=== PATIENT | male | born 1945 | race Caucasian/White ===

== ENCOUNTER 2019-12-01 07:54 | Inpatient (IN) ==
--- NOTE | 2019-12-01 09:12 | DR.AMS ---
HPI - Time Seen Time seen: 09:01 - PCP Primary Care Physician: Ed - Complaint Cheif Complaint Doctors Comments: states that he is COVID positive and has been disorientated with temp 101 with a cough and problems breathing. States he had chills, fever seven days ago and has been taking his medicine for diabetes and took his last pill for the COVID today. He is a patient of Dr. Harris and has been taking metformin and effient. He had angioplasty in [place] at [facility] recently. His appetite has been good and denies problems with taste or smell according to his . He denies headache or dizziness. denies tobacco, alcohol or drug usage. States he was doing fine until last night he begin to complain of having problems breathing and became disorientated. Self Treatment fo Chief Complaint: zithromas, steriods - COVID-19 Coronavirus risk:travel/contact w/high risk person: Yes Has patient experienced Coronavirus symptoms: Yes Coronavirus symptoms experienced: Fever, Coughing, Shortness of Breath - Reviewed Nurses Notes Reviewed: Yes - Source History Provided: Patient - Mode of Arrival Mode of Arrival: Wheelchair - Timing Onset of Chief Complaint: 11/23/19 Came On: Suddenly Symptoms: Worsening Symptom Onset: Unknown - Duration Duration: Constant How lon Duration: Days - Quality Quality: Decreased Alertness, Change in Behavior, Confusion - Severity Severity: Moderate - Context Recent: Fever, Cough, Nausea History Of: Diabetes, Steroid Use - Associated Signs and Symptoms Associated Signs and Symptoms: Generalized Weakness, Confusion, Change in Memory PMH - PMH Past Medical History: Yes Past Medical History: Arthritis, Diabetes, Dyslipidemia, Hypertension, Kidney Stones Past Medical History Comment: Diagnosed with COVID tuesday the with increasing shortness of breath. Past Surgical History: Yes Surgical History: Joint Replacement, Lithotripsy - Family History History of Family Medical Conditions: Yes Family Medical History: Diabetes Mellitus, Hypertension - Social History Does any household member use tobacco: No Alcohol Use: None Do you use any recreational Drugs:: No Lives With: Spouse Lives Where: Home - infectious screening In the last 2 months have you had wt loss of >10#?: NO Have you had fever, night sweats or hemotysis?: No Have you traveled outside the country in the last 6 months?: No Isolation: Droplet ROS - Review of Systems Constitutional: No Symptoms Reported, Fever, Weakness Eyes: No Symptoms Reported ENTM: No Symptoms Reported Respiratoy: No Symptoms Reported, Non-Productive Cough, Short of Breath. negative: See HPI, Productive Cough, Moist Cough, Dry Cough, Hacking Cough, Barking Cough, Brassy Cough, Orthopnea, Stridor, Wheezing, Hemoptysis, Other Cardiovascular: No Symptoms Reported Gastrointestinal/Abdominal: No Symptoms Reported, Nausea. negative: See HPI, Abdominal Pain, Constipation, Diarrhea, Vomiting, Food Intolerance, Other Genitourinary: No Symptoms Reported Neurological: No Symptoms Reported, Weakness Musculoskeletal: No Symptoms Reported Integumentary: No Symptoms Reported. negative: See HPI, Change in Color, Change in Hair/Nails, Dryness, Lesions, Lumps, Rash, Itching, Wound, Bruises, Juandice, Other Hematologic/Lymphatic: No Symptoms Reported Endocrine: No Symptoms Reported Psychiatric: No Symptoms Reported. negative: See HPI, Anxiety, Depression, Hallucinations, Excessive crying, Suicidal, Other PE - General Limitations: No Limitations General Appearance: Alert, In Distress (moderate) - Head Head Exam: Normal Inspection, Atraumatic, Normocephalic Head Exam Physical: negative: Laceration, Abrasion, Contusion, Hematoma, Raccoon Eyes, Israel's Sign, Tenderness of Temporal Artery, CSF Rhinorrhea, CSF Otorrhea, Other - Eyes Eye exam: Normal Appearance, PERRL, EOMI. negative: Scleral Icterus, Conjunctival Injection, Nystagmus, Miosis, Mydrasis, Periorbital Swelling, Periorbital Tenderness, Other Pupils: Regular, Round: Bilateral, Reactive: Bilateral - ENT ENT Exam: Normal Exam, Normal Oropharynx, Normal External Ear Exam, Mucous Membranes Moist, TM's Normal Bilaterally External Ear Exam: Normal External Inspection TM/Canal Exam: Bilateral Normal Nose Exam: Normal Nose Exam Mouth Exam: Normal Inspection. negative: Drooling, Trismus, Lip Swelling, Tongue Elevation, Tongue Swelling, Laceration, Other Throat Exam: Normal Inspection. negative: Tonsillar Erythema, Tonsillomegaly, Tonsillar Exudate, R Peritonsillar Mass, L Peritonsillar Mass, Muffled Voice, Other - Neck Neck Exam: Normal Inspection, Full ROM, Trachea Midline. negative: Tenderness, Meningismus, Lymphadenopathy, Thyromegaly, Other - Chest Chest Inspection: Normal Inspection, Symmetric Chest Wall Rise. negative: Te nderness, Rash, Abscess, Other - Respiratory Respiratory Exam: Normal Lung Sounds Bilat Respiratory Exam: Bilateral Decreased Breath Sounds, Left Rales - Cardiovascular Cardiovascular Exam: Regular Rate, Normal Rhythm, Normal Heart Sounds - Abdominal Exam Abdominal Exam: Normal Inspection, Normal Bowel Sounds, Soft. negative: Distention, Tenderness, Guarding, Rebound, Rigidity, Dimnished Bowel Sounds, Hyperactive Bowel Sounds, Hypoactive Bowel Sounds, Organomegaly, Trauma, Incision, Ascites, Mass, Bruit, Pulsatile Mass, Hernia, Other Abdominal Tenderness: negative: RUQ, RLQ, LUQ, LLQ, Epigastrium, Suprapubic, Diffuse, Mild, Moderate, Severe, Other - Extremities Extremities Exam: Normal Inspection, Full ROM, Normal Capillary Refill. negative: Tenderness, Edema, Joint Swelling, Calf Tenderness, Other - Back Back Exam: Normal Inspection, Full ROM. negative: Tenderness, (R) CVA Tenderness, (L) CVA Tenderness, Muscle Spasm, Paraspinal Tenderness, Vertebral Tenderness, Rashes, (R) Sciatic Notch Tenderness, (L) Sciatic Notch Tendern, (R) Straight Leg Raise, (L) Straight Leg Raise, Other - Neurological Neurological Exam: Alert, Oriented X3, CN II-XII Intact, Reflexes Normal. negative: Normal Gait (gait not tested) Patient Oriented To: Person, Place Speech: Fluid Speech Cranial Nerve Exam: EOM Function (II, III, IV, ): Normal, Facial Sensation (V): Normal, Facial Palsy (VII): Normal, Spinal Accessory Function (XI): Normal, Tongue Deviation: Normal Cerebellar Function: negative: Normal Gait (gait not tested) Motor Strength - LUE: 5/5 Motor Strength - RUE: 5/5 Motor Strength - LLE: 5/5 Motor Strength - RLE: 5/5 Upper Motor Neuron Exam: Babinski Sign: Normal DTR: bicep (L): 2+, bicep (R): 2+, Patellar (L): 2+, patellar (R): 2+ - Psychological Psychiatric Exam: Normal Affect, Normal Mood. negative: Depressed, Agitated, Anxious, Flat Affect, Manic, Homicidal Ideation, Suicidal Ideation, Other Expanded Psychiatric Exam: Poor Eye Contact. negative: Pressured Speech, Echolalia, Psychomotor Agitation, Delusional, Paranoid, Catatonic, Mute, Perseverating, Euphoric, Restlessness, Flight of Ideas, Loose Associations, Uncooperative, Refuses to Answer, Auditory Hallucinations, Visual Hallucinations, Confabulating, Other - Skin Skin Exam: Warm, Dry, Intact, Normal Color. negative: Rash, Cyanosis, Diaphoresis, Erythema, Pallor, Mottled, Other - Vitals Vital Signs: Temp Pulse Pulse Resp BP BP Pulse Ox 12/01/19 11:15 80 22 91 L 12/01/19 11:00 78 23 94 L 12/01/19 10:45 83 26 H 94 L 12/01/19 10:30 86 30 H 94 L 12/01/19 10:15 87 23 93 L 12/01/19 10:00 86 24 95 12/01/19 09:47 18 12/01/19 09:45 91 H 27 H 12/01/19 09:30 90 26 H 127/61 96 12/01/19 09:15 95 H 29 H 95 12/01/19 09:00 93 H 25 H 116/64 93 L 12/01/19 08:50 96 H 19 111/62 96 12/01/19 08:45 94 H 25 H 93 L 12/01/19 08:03 109 H 20 122/63 90 L 12/01/19 07:56 101.2 F H 107 H 24 122/63 89 L Course - Reevaluation 1st: Improved - Consultation Called: 10:58 Call Returned: 10:58 (Dr. Harris called to admit and place on his COVID protocol) - Education/Counseling Education/Counseling: Patient, Family Educated On: Treatment, Diagnosis, Needs for Follow Up ROR - Labs Reviewed Laboratory Results Reviewed?: Yes (All labs and x-ray results reviewed and discussed with patient) Result Diagrams: 12/01/19 09:38 12/01/19 09:38 - XRAY XRAY Interpreted by: Radiologist (CXR: No convincing evidence for pneumonia.) - EKG Rate: 88 Raymond: Normal Rhythm: NSR Block: None Hypertrophy: None ST: Nonsp - Labs Reviewed Laboratory: WBC 8.9 X10^3/uL (3.6-10.0) 12/01/19 09:38 RBC 4.45 X10^6/uL (4.7-6.0) L 12/01/19 09:38 Hgb 14.0 g/dL (13.5-18.0) 12/01/19 09:38 Hct 41.4 % (42.0-54.0) L 12/01/19 09:38 MCV 93.0 fL (80.0-100.0) 12/01/19 09:38 MCH 31.5 pg (27.0-34.0) 12/01/19 09:38 MCHC 33.8 g/dL (33.0-35.0) 12/01/19 09:38 RDW 14.0 % (11.6-16.5) 12/01/19 09:38 Plt Count 188 X10^3/uL (150.0-450.0) 12/01/19 09:38 Plt Count Comment Adequate (ADEQUATE) 12/01/19 09:38 MPV 8.3 fL (7.4-11.0) 12/01/19 09:38 Neut % (Auto) 82.4 % (42.0-75.0) H 12/01/19 09:38 Lymph % (Auto) 10.0 % (21.0-51.0) L 12/01/19 09:38 [place] % (Auto) 7.4 % (0.0-13.0) 12/01/19 09:38 Eos % (Auto) 0.0 % (0.9-2.9) L 12/01/19 09:38 Baso % (Auto) 0.2 % (0.2-1.0) 12/01/19 09:38 Neut # (Auto) 7.3 x10^3/uL (2.2-4.8) H 12/01/19 09:38 Lymph # (Auto) 0.9 X10^3/uL (1.3-2.9) L 12/01/19 09:38 Dup[place] # (Auto) 0.7 x10^3/uL (0.3-0.8) 12/01/19 09:38 Eos # (Auto) 0.0 x10^3/uL (0.0-0.2) 12/01/19 09:38 Baso # (Auto) 0.0 X10^3/uL (0.0-0.1) 08/08/20 09:38 Absolute Nucleated RBC 0.0 /100WBC 12/01/19 09:38 Total Counted 100 12/01/19 09:38 Neutrophils % (Manual) 80 % (39-76) H 12/01/19 09:38 Band Neutrophils % 1 % (0-10) 12/01/19 09:38 Lymphocytes % (Manual) 12 % (13-43) L 12/01/19 09:38 Monocytes % (Manual) 7 % (4-9) 12/01/19 09:38 Plt Morphology Comment Normal (NORMAL) 12/01/19 09:38 RBC Morphology Normal (NORMAL) 12/01/19 09:38 PT 13.5 SECONDS (11.8-14.3) 12/01/19 09:38 INR Target Range - 12/01/19 09:38 INR 1.06 (0.8-1.3) 12/01/19 09:38 APTT 29.1 SECONDS (22.9-36.5) 12/01/19 09:38 PTT Comment - 12/01/19 09:38 D-Dimer 588 ng/mL (0-400) H* 12/01/19 09:38 Sodium 135 mmol/L (136-145) L 12/01/19 09:38 Corrected Sodium 138 mmol/L (136-145) 12/01/19 09:38 Potassium 4.0 mmol/L (3.5-5.1) 12/01/19 09:38 Chloride 97 mmol/L (98-107) L 12/01/19 09:38 Carbon Dioxide 27.8 mmol/L (21-32) 12/01/19 09:38 BUN 21 mg/dL (7-18) H 12/01/19 09:38 Creatinine 1.39 mg/dL (0.70-1.30) H 12/01/19 09:38 Est GFR (MDRD) Af Amer > 60 (>60) 12/01/19 09:38 Est GFR (MDRD) Non-Af 53 (>60) L 12/01/19 09:38 Glucose 209 mg/dL (65-99) H 12/01/19 09:38 Calcium 9.0 mg/dL (8.5-10.1) 12/01/19 09:38 Corrected Calcium TNP 12/01/19 09:38 Magnesium 1.4 mg/dL (1.7-2.9) L 12/01/19 09:38 Ferritin 338 ng/mL (26-388) 12/01/19 09:38 Total Bilirubin 0.50 mg/dL (0.2-1.0) 12/01/19 09:38 AST 30 Units/L (15-37) 12/01/19 09:38 ALT 50 Units/L (12-78) 12/01/19 09:38 Alkaline Phosphatase 86 Units/L (46-116) 12/01/19 09:38 Creatine Kinase 32 Units/L (39-308) L 12/01/19 09:38 CK-MB (CK-2) < 1.0 ng/mL (0-4.0) 12/01/19 09:38 CK/CKMB % Calc 3.1 % (<4) 12/01/19 09:38 Troponin I 0.02 ng/mL (0-1.5) 12/01/19 09:38 C-Reactive Protein 38.50 mg/L (0-3.0) H 12/01/19 09:38 Total Protein 7.6 g/dL (6.4-8.2) 12/01/19 09:38 Albumin 3.4 g/dL (3.4-5.0) 12/01/19 09:38 Globulin 4.2 g/dL (2.5-4.5) 12/01/19 09:38 Albumin/Globulin Ratio 0.8 Ratio (1.1-2.1) L 12/01/19 09:38 Opioid - Opioid Risk Tool Age (Scar box if 16-45): No History of Preadolescent Sexual Abuse: No Total: 0 Total Score Risk Category: Low Risk - Diagnosis Discharge Problem: COVID-19 virus infection, Acute respiratory disease due to COVID-19 virus, AMS (altered mental status) - Discharge Plan Disposition: ADMITTED INPATIENT Condition: Stable - Follow ups/Referrals Follow ups/Referrals: JAIR BAILEY [Primary Care Provider] - 3 days - Instructions
[2019-12-01] MEDS ORDERED: ROCEPHIN VIAL 1 GRAM 1 G in NS 100 ML IV + SPIKE MINIBAG* 100 ML IV ONE (09:23)
[2019-12-01] MEDS ORDERED: TYLENOL 500 MG TAB EXTRA STRENGTH PO STA (09:25)
[2019-12-01] MEDS ORDERED: NS 1000 ML 1,000 ML ONE (09:29)
[2019-12-01] MEDS ORDERED: NS 100 ML IV + SPIKE MINIBAG* 100 ML IV ONE (09:29)
[2019-12-01] MEDS ORDERED: ROCEPHIN VIAL 1 GRAM ONE (09:29)
[2019-12-01] MEDS ORDERED: TYLENOL 500 MG TAB EXTRA STRENGTH PO ONE (09:47)
--- NOTE | 2019-12-01 09:57 | RAD ---
HISTORYPneumonia SOBSTUDYAP chestCOMPARISONNoneFINDINGSUpper normal heart size. There is no evidence for segmental or lobar consolidation or pleural effusion. Minimal basal infiltrate may be present, this is equivocal. No definite pneumonia identified.IMPRESSIONNo convincing evidence for pneumonia. See above. Follow-up suggested if symptoms persist.Electronically signed by: CELIA WADE (Dec 01, 2019 09:56:14)
[2019-12-01 10:00] LABS: BASOPHILS % (AUTO) 0.2 % (0.2-1.0); HEMATOCRIT 41.4 % (42.0-54.0); LYMPHOCYTES # (AUTO) 0.9 X10^3/uL (1.3-2.9); MEAN CORPUSCULAR HEMOGLOBIN 31.5 pg (27.0-34.0); MEAN CORPUSCULAR HGB CONC 33.8 g/dL (33.0-35.0); MEAN PLATELET VOLUME 8.3 fL (7.4-11.0); MONOCYTES # (AUTO) 0.7 x10^3/uL (0.3-0.8); MONOCYTES % (AUTO) 7.4 % (0.0-13.0); NEUTROPHILS # (AUTO) 7.3 x10^3/uL (2.2-4.8); NEUTROPHILS % (AUTO) 82.4 % (42.0-75.0); PLATELET COUNT 188 X10^3/uL (150.0-450.0); RED BLOOD COUNT 4.45 X10^6/uL (4.7-6.0); WHITE BLOOD COUNT 8.9 X10^3/uL (3.6-10.0)
[2019-12-01] MEDS ORDERED: NS 1000 ML 1,000 ML IV SCH (10:00)
[2019-12-01 10:14] LABS: BLOOD UREA NITROGEN 21 mg/dL (7-18); CARBON DIOXIDE 27.8 mmol/L (21-32); CHLORIDE 97 mmol/L (98-107); COR NA(FOR HYPERGLY) 138 mmol/L (136-145); CREATININE 1.39 mg/dL (0.70-1.30); SODIUM 135 mmol/L (136-145); TROPONIN I 0.02 ng/mL (0-1.5); eGFR NON BLACK RACES 53 (>60)
[2019-12-01 10:18] LABS: ALANINE AMINOTRANSFERASE 50 Units/L (12-78); ALBUMIN 3.4 g/dL (3.4-5.0); ALKALINE PHOSPHATASE 86 Units/L (46-116); ASPARTATE AMINO TRANSFERASE 30 Units/L (15-37); CKMB % 3.1 % (<4); CREATINE KINASE 32 Units/L (39-308); CREATINE KINASE MB < 1.0 ng/mL (0-4.0); MAGNESIUM 1.4 mg/dL (1.7-2.9); TOTAL PROTEIN 7.6 g/dL (6.4-8.2)
[2019-12-01 10:30] LABS: BAND NEUTROPHILS % 1 % (0-10); PLATELET MORPHOLOGY COMMENT NORMAL (NORMAL)
[2019-12-01] MEDS ORDERED: REMDESIVIR (INVESTIGATIONAL DRUG GS-5734) 200 MG in NS 250 ML IV 250 ML IV SCH (12:00)
[2019-12-01] MEDS: CORTEF PO SCH ×2 (16:22→16:53)
[2019-12-01] MEDS: NS 1000 ML 1,000 ML IV SCH (16:41)
[2019-12-01] MEDS ORDERED: CORTEF ONE (16:48)
[2019-12-01] MEDS ORDERED: REMDESIVIR (INVESTIGATIONAL DRUG GS-5734) IV ONE (16:48)
[2019-12-01] MEDS ORDERED: NS 250 ML IV 250 ML IV ONE (16:49)
[2019-12-01] MEDS ORDERED: NS 100 ML IV 100 ML IV ONE (16:49)
[2019-12-01] MEDS ORDERED: ASCORBIC ACID INJ MULTI-DOSE VIAL IV ONE (16:50)
[2019-12-01] MEDS ORDERED: PROVENTIL NEB TX 0.083% 2.5MG/ 3ML ONE (17:00)
[2019-12-01] MEDS: PROVENTIL NEB TX 0.083% 2.5MG/ 3ML NEB PRN (17:05)
[2019-12-01 17:40] VITALS: BMI 27.6
[2019-12-01] MEDS: ASCORBIC ACID INJ MULTI-DOSE VIAL 1,500 MG in NS 100 ML IV 100 ML IV SCH ×2 (18:05→20:22)
[2019-12-01] MEDS ORDERED: MAGNESIUM SULFATE 1 GRAM/100 mL PREMIX 1 GM/100 ML BAG IV PRN (19:49)
[2019-12-01] MEDS: PROVENTIL NEB TX 0.083% 2.5MG/ 3ML NEB SCH (20:00)
[2019-12-01] MEDS: MUCOMYST 20% 200 MG/ML NEB SCH (20:00)
[2019-12-01] MEDS: PULMICORT NEB TX 0.5 MG NEB SCH (20:00)
[2019-12-01] MEDS ORDERED: THIAMINE HCL INJ IM SCH (21:00)
[2019-12-01] MEDS ORDERED: PLAQUENIL PO SCH (21:00)
[2019-12-01] MEDS: ZINC SULFATE PO SCH (21:58)
[2019-12-01] MEDS: PEPCID 20 MG IV PREMIX* 20 MG/50 ML BAG IV SCH (21:58)
[2019-12-01] MEDS: SOLU-Medrol 40 MG VIAL IVP SCH (21:58)
[2019-12-01] MEDS: LOVENOX INJ 30 MG SYR SC SCH (21:58)
[2019-12-01] MEDS: TYLENOL 325 MG TAB PO PRN (21:59)
[2019-12-02] MEDS: ASCORBIC ACID INJ MULTI-DOSE VIAL 1,500 MG in NS 100 ML IV 100 ML IV SCH ×2 (02:13→09:24)
[2019-12-02 05:22] LABS: ABG ALLEN TEST POS; ABG HCO3 26.6 mmol/L (22-26); FRACTIONATED INSPIRED OXYGEN 21
[2019-12-02 05:53] LABS: ALANINE AMINOTRANSFERASE 42 Units/L (12-78); ALBUMIN 3.2 g/dL (3.4-5.0); ALKALINE PHOSPHATASE 78 Units/L (46-116); ASPARTATE AMINO TRANSFERASE 27 Units/L (15-37); BLOOD UREA NITROGEN 17 mg/dL (7-18); CALCIUM 8.6 mg/dL (8.5-10.1); CARBON DIOXIDE 25.1 mmol/L (21-32); CHLORIDE 98 mmol/L (98-107); COR CA(FOR HYPOALB) 9.2 mg/dL (8.5-10.1); COR NA(FOR HYPERGLY) 140 mmol/L (136-145); CREATININE 1.07 mg/dL (0.70-1.30); SODIUM 135 mmol/L (136-145); TOTAL PROTEIN 7.7 g/dL (6.4-8.2); eGFR NON BLACK RACES > 60 (>60)
--- NOTE | 2019-12-02 06:10 | RAD ---
HISTORYSOBSTUDYCHEST, 1 [id number]/08/2020FINDINGSThe trachea is midline. The cardiac silhouette is enlarged with a tortuous thoracic aorta. Chronic interstitial lung changes are observed without focal infiltrate or effusion.. The bony thorax is unremarkable.IMPRESSIONChronic interstitial lung changes without focal infiltrate or other airspace disease.Electronically signed by: ELVIN RODRÍGUEZ (Dec 02, 2019 06:09:43)
[2019-12-02 06:20] LABS: BASOPHILS % (AUTO) 0.2 % (0.2-1.0); HEMOGLOBIN 14.4 g/dL (13.5-18.0); LYMPHOCYTES # (AUTO) 0.7 X10^3/uL (1.3-2.9); LYMPHOCYTES % (AUTO) 9.3 % (21.0-51.0); MEAN CORPUSCULAR HEMOGLOBIN 31.6 pg (27.0-34.0); MEAN CORPUSCULAR HGB CONC 33.5 g/dL (33.0-35.0); MEAN CORPUSCULAR VOLUME 94.2 fL (80.0-100.0); MEAN PLATELET VOLUME 8.5 fL (7.4-11.0); MONOCYTES # (AUTO) 0.2 x10^3/uL (0.3-0.8); MONOCYTES % (AUTO) 2.6 % (0.0-13.0); NEUTROPHILS # (AUTO) 6.8 x10^3/uL (2.2-4.8); NEUTROPHILS % (AUTO) 87.9 % (42.0-75.0); PLATELET COUNT 192 X10^3/uL (150.0-450.0); RED BLOOD COUNT 4.56 X10^6/uL (4.7-6.0); RED CELL DISTRIBUTION WIDTH 14.1 % (11.6-16.5); WHITE BLOOD COUNT 7.7 X10^3/uL (3.6-10.0)
[2019-12-02 07:47] LABS: BAND NEUTROPHILS % 4 % (0-10); PLATELET MORPHOLOGY COMMENT NORMAL (NORMAL)
[2019-12-02 07:48] LABS: METAMYELOCYTES % 1
[2019-12-02] MEDS: PULMICORT NEB TX 0.5 MG NEB SCH ×2 (08:50→20:55)
[2019-12-02] MEDS: MUCOMYST 20% 200 MG/ML NEB SCH ×2 (08:50→20:55)
[2019-12-02] MEDS: PROVENTIL NEB TX 0.083% 2.5MG/ 3ML NEB SCH ×2 (08:50→20:55)
[2019-12-02] MEDS ORDERED: VITAMIN A PO SCH (09:00)
[2019-12-02] MEDS ORDERED: VITAMIN D (1.25MG) PO SCH (09:00)
[2019-12-02] MEDS: LOVENOX INJ 30 MG SYR SC SCH ×2 (09:23→21:04)
[2019-12-02] MEDS: SOLU-Medrol 40 MG VIAL IVP SCH ×2 (09:24→22:06)
[2019-12-02] MEDS: ZINC SULFATE PO SCH ×2 (09:24→23:06)
[2019-12-02] MEDS: PEPCID 20 MG IV PREMIX* 20 MG/50 ML BAG IV SCH ×2 (10:08→23:06)
[2019-12-02] MEDS ORDERED: REMDESIVIR (INVESTIGATIONAL DRUG GS-5734) 100 MG in NS 250 ML IV 250 ML IV SCH (10:50)
[2019-12-02] MEDS ORDERED: LEVAQUIN PREMIX IV 500 MG 500 MG/100 ML BAG IV SCH (11:00)
[2019-12-02] MEDS ORDERED: LEVAQUIN PREMIX IV 500 MG 500 MG/100 ML BAG IV ONE (11:01)
[2019-12-02] MEDS: NS 1000 ML 1,000 ML IV SCH (12:04)
[2019-12-02] MEDS ORDERED: COREG TAB 6.25 MG ONE (14:20)
[2019-12-02] MEDS: COREG TAB 6.25 MG PO SCH ×2 (14:24→23:03)
[2019-12-02] MEDS ORDERED: GLUCOPHAGE ONE (16:36)
[2019-12-02] MEDS ORDERED: PLETAL PO PRN (16:39)
[2019-12-02] MEDS: PROVENTIL NEB TX 0.083% 2.5MG/ 3ML NEB PRN (16:50)
[2019-12-02] MEDS: GLUCOPHAGE PO SCH (16:50)
--- NOTE | 2019-12-02 18:26 | DR.H&P ---
H&P - History & Physical for Day of: H&P Date: 12/01/19 - Chief Complaint Chief Complaint: COUGH, SOB, FEVER, AMS, WEAKNESS - History of Present Illness History of Present Illness: IS A 74 YEAR OLD PATIENT OF OURS. HE PRESENTED TO THE HOSPITAL WITH REPORTS OF COUGH, SHORTNESS OF BREATH, FEVER, DISORIENTATION, AND WEAKNESS. HE TESTED POSITIVE FOR COVID-19 ABOUT 3 DAYS AGO. HE HAD A RECENT ANGIOPLASTY IN [place] AT [facility]. HE DENIES HEADACHE, DIZZINESS, OR APPETITE CHANGES. HE HAS BEEN TAKING A MEDROL DOSEPACK AND AZITHROMYCIN 500MG DAILY WITHOUT IMPROVEMENT IN SYMPTOMS. HIS PMH INCLUDES: ARTHRITIS, DIABETES, DYSLIPIDEMIA, HTN, KIDNEY STONES, JOINT REPLACEMENT, LITHOTRIPSY, AND ANGIOPLASTY. ON ARRIVAL TO THE ER, VITALS WERE 101.2-107-24-89%RA-122/63. LABS WERE OBTAINED. ABNORMAL LAB VALUES INCLUDE THE FOLLOWING: RBC 4.45, HCT 41.4, D-DIMER 588, SODIUM 135, CHLORIDE 97, BUN 21, CREATININE 1.39, GLUCOSE 209, MAGNESIUM 1.4, CREATINE KINASE 32, CRP 38.50. BLOOD AND SPUTUM CULTURES WERE SET UP. A CHEST XRAY WAS OBTAINED AND REVEALED: Upper normal heart size. There is no evidence for segmental or lobar consolidation or pleural effusion. Minimal basal infiltrate may be present, this is equivocal. No definite pneumonia identified. EKG REVEALED: SINUS RHYTHM WITH HR 88. HE WAS GIVEN ROCEPHIN 1G IV X 1 DOSE, TYLENOL 1G PO X 1 DOSE IN THE ER. HE WAS ADMITTED FOR FURTHER EVALUATION AND TREATMENT OF COVID-19, ACUTE BRON CHITIS, RESPIRATORY DISTRESS, AMS, AND HYPOMAGNESEMIA. HE WAS STARTED ON NS AT 75 ML/HR, REMDESIVIR 200MG IV X 1 DOSE, THEN 100MG IV DAILY, LEVAQUIN 500MG IV DAILY, SOLU-MEDROL 80MG IV Q8H, PEPCID 20MG IV Q12H, ALBUTEROL NEB [place] BID AND Q4H PRN, PULMICORT NEBS BID, MUCOMYST 200MG BID IN NEB [place], LOVENOX 30MG SC BID, THE MAGNESIUM PROTOCOL, ZINC 220MG PO BID, AND HOME MEDICATIONS WERE RESUMED. OTHERWISE, WE PLAN TO FOLLOW UP WITH AM LABS, CHEST XRAY, ABG, AND CONTINUE TO MONITOR. - Past Medical History Past Medical History: Arthritis, Diabetes, Dyslipidemia, Hypertension, Kidney Stones - Past Surgical History Surgical History: Ortho Surgery Additional Surgical History: ANGIOPLASTY, LITHOTRIPSY - Family History Family Medical History: Diabetes Mellitus, Hypertension - Social History Does any household member use tobacco: No Alcohol Use: None Drug Use: None - Medications Home Medications: No Known Drug Allergies Allergy (Verified 12/01/19 09:26) CONTINUE taking the following medications aspirin [Aspir-81] 81 mg PO DAILY 12/02/19 [History] atorvastatin 40 mg PO QHS 12/02/19 [History] carvedilol 6.25 mg PO BID 12/02/19 [History] cilostazol 100 mg PO BID PRN 12/02/19 [History] doxazosin 8 mg PO QHS 12/02/19 [History] gabapentin 600 mg PO BID 12/02/19 [History] metformin 500 mg PO BID 12/02/19 [History] prasugrel 10 mg PO DAILY 12/02/19 [History] - Review of Systems Constitutional: See HPI, Fever, Chills, Weakness Eyes: No Symptoms Reported ENT: No Symptoms Reported Respiratory: See HPI, Cough, Shortness of Breath, SOB with Excertion, Wheezing Cardiovascular: No Symptoms Reported Gastrointestinal: No Symptoms Reported Genitourinary: No Symptoms Reported Musculoskeletal: No Symptoms Reported Skin: No Symptoms Reported Neurological: Weakness - Physical Exam Vital Signs: Temperature 97.8 F Pulse Rate [Right Brachial] 80 Pulse Rate [Left Radial] 96 Pulse Rate 88 Respiratory Rate 18 Blood Pressure [Right Arm] 175/91 Blood Pressure [Left Arm] 111/62 Blood Pressure 127/61 O2 Sat by Pulse Oximetry 96 Oriented: Person Eyes: Normal Ear: Normal Nose: Normal Throat: Normal Respiratory: Diminished Throughout Cardiovascular: Normal : Normal Auscultation: Bowel Sounds: Normal Palpation: Normal Tenderness: Normal Skin: Normal Musculoskeletal: Normal Psychiatric: Normal Mood Description: Calm Affect: Normal Speech Pattern: Inappropriate - Assessment/Plan (1) COVID-19 virus infection Status: Acute Plan: ADMIT, NS AT 75 ML/HR, REMDESIVIR 200MG IV X 1 DOSE, THEN 100MG IV DAILY, LEVAQUIN 500MG IV DAILY, SOLU-MEDROL 80MG IV Q8H, PEPCID 20MG IV Q12H, ALBUTEROL NEB [place] BID AND Q4H PRN, PULMICORT NEBS BID, MUCOMYST 200MG BID IN NEB [place], LOVENOX 30MG SC BID, THE MAGNESIUM PROTOCOL, ZINC 220MG PO BID, AND HOME MEDICATIONS WERE RESUMED. (2) Acute respiratory disease due to COVID-19 virus Status: Acute (3) AMS (altered mental status) Qualifiers: Altered mental status type: transient alteration of awareness Qualified Code(s): R40.4 - Transient alteration of awareness Status: Acute - Allergies Allergies/Adverse Reactions: Allergies Allergy/AdvReac Type Severity Reaction Status Date / Time No Known Drug Allergies Allergy Verified 12/01/19 09:26
[2019-12-02 19:05] LABS: CRYPTOSPORIDIUM PARVUM ANTIGEN NEGATIVE (NEGATIVE); GIARDIA LAMBLIA ANTIGEN NEGATIVE (NEGATIVE)
[2019-12-02] MEDS ORDERED: SOLU-Medrol 40 MG VIAL ONE (19:58)
[2019-12-02] MEDS: CARDURA PO SCH (21:02)
[2019-12-02] MEDS: CIPRO IV 400 MG PREMIX* 400 MG/200 ML IV.SOLN. IV SCH (21:02)
[2019-12-02] MEDS: NEURONTIN TAB 600 MG PO SCH (21:05)
[2019-12-02] MEDS: TYLENOL 325 MG TAB PO PRN ×2 (22:00→23:09)
[2019-12-02] MEDS: LIPITOR TAB 40 MG PO SCH (23:03)
[2019-12-03] MEDS ORDERED: GLUCOPHAGE ONE ×2 (05:04→16:06)
[2019-12-03] MEDS: SOLU-Medrol 40 MG VIAL IVP SCH ×3 (05:40→22:01)
[2019-12-03 06:04] LABS: ALANINE AMINOTRANSFERASE 34 Units/L (12-78); ALBUMIN 2.9 g/dL (3.4-5.0); ALKALINE PHOSPHATASE 79 Units/L (46-116); ASPARTATE AMINO TRANSFERASE 21 Units/L (15-37); BLOOD UREA NITROGEN 25 mg/dL (7-18); CALCIUM 8.5 mg/dL (8.5-10.1); CARBON DIOXIDE 22.7 mmol/L (21-32); CHLORIDE 102 mmol/L (98-107); COR CA(FOR HYPOALB) 9.4 mg/dL (8.5-10.1); COR NA(FOR HYPERGLY) 141 mmol/L (136-145); CREATININE 1.19 mg/dL (0.70-1.30); SODIUM 136 mmol/L (136-145); TOTAL PROTEIN 7.1 g/dL (6.4-8.2); eGFR NON BLACK RACES > 60 (>60)
[2019-12-03 06:16] LABS: BASOPHILS % (AUTO) 0 % (0.2-1.0); HEMATOCRIT 41.4 % (42.0-54.0); LYMPHOCYTES # (AUTO) 0.8 X10^3/uL (1.3-2.9); LYMPHOCYTES % (AUTO) 7.1 % (21.0-51.0); MEAN CORPUSCULAR HEMOGLOBIN 31.4 pg (27.0-34.0); MEAN CORPUSCULAR HGB CONC 33.8 g/dL (33.0-35.0); MEAN CORPUSCULAR VOLUME 92.8 fL (80.0-100.0); MONOCYTES # (AUTO) 0.3 x10^3/uL (0.3-0.8); MONOCYTES % (AUTO) 2.8 % (0.0-13.0); NEUTROPHILS # (AUTO) 10.1 x10^3/uL (2.2-4.8); NEUTROPHILS % (AUTO) 90.1 % (42.0-75.0); PLATELET COUNT 208 X10^3/uL (150.0-450.0); RED BLOOD COUNT 4.46 X10^6/uL (4.7-6.0); RED CELL DISTRIBUTION WIDTH 13.8 % (11.6-16.5); WHITE BLOOD COUNT 11.2 X10^3/uL (3.6-10.0)
[2019-12-03] MEDS: GLUCOPHAGE PO SCH ×2 (06:33→16:19)
--- NOTE | 2019-12-03 07:02 | RAD ---
HISTORYShort of breath follow-up for history of COVID infection, acute respiratory distressSTUDYCHEST, 1 VIEWCOMPARISONAP portable chest December 02, 2019.FINDINGSThe trachea is midline. The cardiac silhouette is unremarkable . The lungs are clear without focal infiltrate or effusion. The bony thorax is unremarkable. There is no interval change from yesterday's film.IMPRESSIONNo acute cardiopulmonary disease and no change from recent film 02 December 2019..Electronically signed by: DIOR SHEIKH (Dec 03, 2019 07:01:47)
[2019-12-03 07:03] LABS: ABG BASE EXCESS -1.1 mmol/L (-2.0-2.0); ABG HCO3 22.2 mmol/L (22-26)
[2019-12-03 07:04] LABS: ABG ALLEN TEST POS; FRACTIONATED INSPIRED OXYGEN 21
[2019-12-03 07:16] LABS: PLATELET MORPHOLOGY COMMENT NORMAL (NORMAL)
[2019-12-03] MEDS: PEPCID 20 MG IV PREMIX* 20 MG/50 ML BAG IV SCH ×2 (08:32→22:02)
[2019-12-03] MEDS: PULMICORT NEB TX 0.5 MG NEB SCH ×2 (08:40→21:30)
[2019-12-03] MEDS: MUCOMYST 20% 200 MG/ML NEB SCH ×2 (08:40→21:30)
[2019-12-03] MEDS: PROVENTIL NEB TX 0.083% 2.5MG/ 3ML NEB SCH ×2 (08:40→21:30)
[2019-12-03] MEDS: CIPRO IV 400 MG PREMIX* 400 MG/200 ML IV.SOLN. IV SCH ×2 (08:51→22:00)
[2019-12-03] MEDS: COREG TAB 6.25 MG PO SCH ×2 (08:52→22:00)
[2019-12-03] MEDS: LOVENOX INJ 30 MG SYR SC SCH ×2 (08:53→22:00)
[2019-12-03] MEDS: ZINC SULFATE PO SCH ×2 (08:53→22:01)
[2019-12-03] MEDS: NEURONTIN TAB 600 MG PO SCH ×2 (08:53→22:01)
[2019-12-03] MEDS ORDERED: VITAMIN D3 125 mcg (5,000 UNITS) PO SCH (09:00)
[2019-12-03] MEDS ORDERED: VITAMIN A PO SCH (09:00)
[2019-12-03] MEDS: NS 1000 ML 1,000 ML IV SCH (12:31)
[2019-12-03] MEDS: HumuLIN R SUBCUT PRN ×3 (12:46→22:00)
[2019-12-03] MEDS ORDERED: HumuLIN R ONE (12:46)
--- NOTE | 2019-12-03 13:18 | PCM.PROG ---
Progress Note - Progress Note for Day of Date of Exam: 12/02/19 - Subjective Subjective: IS BEING TREATED FOR COVID-19, ACUTE BRONCHITIS, RESPIRATORY DISTRESS, AMS, AND HYPOMAGNESEMIA. TODAY, HE IS ALERT AND ORIENTED, LYING IN BED ON MORNING ROUNDS. HE CONTINUES WITH COMPLAINTS OF COUGH AND SHORTNESS OF BREATH. HE ALSO REPORTS SEVERAL EPISODES OF DIARRHEA TODAY. STAFF REPORTS THAT HE IS DISORIENTED AT TIMES. HE HAS BEEN UTILIZING OXYGEN VIA NASAL CANNULA AT 2L/MIN. ON EXAMINATION, HEART IS REGULAR IN RATE AND RHYTHM. BILATERAL LUNGS ARE NOTED WITH DIMINISHED LUNG SOUNDS THROUGHOUT. ABDOMEN IS ROUND, SOFT, AND NON-TENDER WITH HYPERACTIVE BOWEL SOUNDS. HIS VITALS THIS MORNING ARE: 98.6-88-20-97%NC-146/75. LABS WERE OBTAINED. ABNORMAL LAB VALUES INCLUDE THE FOLLOWING: RBC 4.56, SODIUM 135, GLUCOSE 288, CRP 110.20, ALBUMIN 3.2. ABG REVEALED: PH 7.420, PC02 41.0, P02 65.0, HC03 26.6, 02 SATURATION 93.0, BASE EXCESS 33.0, FI02 21.0. BLOOD CULTURES ARE PENDING. A CHEST XRAY WAS OBTAINED AND REVEALED: Chronic interstitial lung changes without focal infiltrate or other airspace disease. HE IS CURRENTLY RECEIVING NS AT 75 ML/HR, REMDESIVIR 100MG IV DAILY, LEVAQUIN 500MG IV DAILY, SOLU-MEDROL 80MG IV Q8H, PEPCID 20MG IV Q12H, ALBUTEROL NEB TX BID AND Q4H PRN, PULMICORT NEBS BID, MUCOMYST 200MG BID IN NEB TX, LOVENOX 30MG SC BID, THE MAGNESIUM PROTOCOL, ZINC 220MG PO BID, AND HOME MEDICATIONS WERE RESUMED. TODAY, WE WILL OBTAIN STOOL STUDIES. OTHERWISE, WE WILL FOLLOW UP WITH AM LABS, CHEST XRAY, EKG, AND CONTINUE TO MONITOR. - Past Medical Family Social History Past Med/Fam/Surg Hx: No changes since H&P Allergies: Allergies No Known Drug Allergies Allergy (Verified 12/01/19 09:26) - Review of Systems ROS: No change since H&P - Vital Signs and I&O's Vital Signs: Temperature 97.7 F Pulse Rate [Right Brachial] 62 Pulse Rate [Left Radial] 96 Pulse Rate 73 Respiratory Rate 22 Blood Pressure [Right Arm] 146/70 Blood Pressure [Left Arm] 111/62 Blood Pressure 127/61 O2 Sat by Pulse Oximetry 96 Intake and Output: Intake & Output 12/01/19 12/02/19 12/03/19 12/04/19 11:59 11:59 11:59 11:59 Intake Total 2600 / 2600 4092 / 4092 Output Total 2150 / 2150 Balance 450 / 450 4092 / 4092 - Physical Exam Oriented: Person Eyes: Normal Ear: Normal Nose: Normal Throat: Normal Cardiovascular: Normal : Normal Auscultation: Bowel Sounds: Normal Palpation: Normal Tenderness: Normal Skin: Normal Musculoskeletal: Normal Psychiatric: Normal Mood Description: Calm Affect: Normal Speech Pattern: Clear, Appropriate - Laboratory and Diagnostics Result Diagrams: 12/03/19 04:40 12/03/19 04:40 Labs: 12/02/19 17:30 Sputum - Expectorated Sputum Sputum Culture - Preliminary 12/02/19 17:30 Sputum - Expectorated Sputum - Final 12/02/19 17:53 Stool Stool Culture - Preliminary 12/02/19 17:53 Stool - Final Laboratory WBC 11.2 X10^3/uL (3.6-10.0) H 12/03/19 04:40 RBC 4.46 X10^6/uL (4.7-6.0) L 12/03/19 04:40 Hgb 14.0 g/dL (13.5-18.0) 12/03/19 04:40 Hct 41.4 % (42.0-54.0) L 12/03/19 04:40 MCV 92.8 fL (80.0-100.0) 12/03/19 04:40 MCH 31.4 pg (27.0-34.0) 12/03/19 04:40 MCHC 33.8 g/dL (33.0-35.0) 12/03/19 04:40 RDW 13.8 % (11.6-16.5) 12/03/19 04:40 Plt Count 208 X10^3/uL (150.0-450.0) 12/03/19 04:40 Plt Count Comment Adequate (ADEQUATE) 12/03/19 04:40 MPV 8.0 fL (7.4-11.0) 12/03/19 04:40 Neut % (Auto) 90.1 % (42.0-75.0) H 12/03/19 04:40 Lymph % (Auto) 7.1 % (21.0-51.0) L 12/03/19 04:40 [place] % (Auto) 2.8 % (0.0-13.0) 12/03/19 04:40 Eos % (Auto) 0.0 % (0.9-2.9) L 12/03/19 04:40 Baso % (Auto) 0 % (0.2-1.0) L 12/03/19 04:40 Neut # (Auto) 10.1 x10^3/uL (2.2-4.8) H 12/03/19 04:40 Lymph # (Auto) 0.8 X10^3/uL (1.3-2.9) L 12/03/19 04:40 [place] # (Auto) 0.3 x10^3/uL (0.3-0.8) 12/03/19 04:40 Eos # (Auto) 0.0 x10^3/uL (0.0-0.2) 12/03/19 04:40 Baso # (Auto) 0.0 X10^3/uL (0.0-0.1) 12/03/19 04:40 Absolute Nucleated RBC 0.1 /100WBC 12/03/19 04:40 Total Counted 100 12/03/19 04:40 Neutrophils % (Manual) 86 % (39-76) H 12/03/19 04:40 Band Neutrophils % 4 % (0-10) 12/02/19 04:25 Lymphocytes % (Manual) 10 % (13-43) L 12/03/19 04:40 Monocytes % (Manual) 3 % (4-9) L 12/03/19 04:40 Eosinophils % (Manual) 1 % (0-6) 12/03/19 04:40 Metamyelocytes % 1 12/02/19 04:25 Plt Morphology Comment Normal (NORMAL) 12/03/19 04:40 RBC Morphology Normal (NORMAL) 12/03/19 04:40 PT 13.5 SECONDS (11.8-14.3) 12/01/19 09:38 INR Target Range - 12/01/19 09:38 INR 1.06 (0.8-1.3) 12/01/19 09:38 APTT 29.1 SECONDS (22.9-36.5) 12/01/19 09:38 PTT Comment - 12/01/19 09:38 D-Dimer 588 ng/mL (0-400) H* 12/01/19 09:38 Sample Site Rrad 12/03/19 05:35 ABG pH 7.450 (7.35-7.45) 12/03/19 05:35 ABG pCO2 32.0 mmHg (35.0-45.0) L 12/03/19 05:35 ABG pO2 74.0 mmHg (80.0-100.0) L 12/03/19 05:35 ABG HCO3 22.2 mmol/L (22-26) 12/03/19 05:35 ABG O2 Saturation 95.0 % (90-100) 12/03/19 05:35 ABG Base Excess -1.1 mmol/L (-2.0-2.0) 12/03/19 05:35 Bao Test Pos 12/03/19 05:35 A-a Gradient 86.0 mmHg 12/03/19 05:35 FiO2 21 12/03/19 05:35 Blood Gas Comments Mary Jane abg well-mtf 12/03/19 05:35 Sodium 136 mmol/L (136-145) 12/03/19 04:40 Corrected Sodium 141 mmol/L (136-145) 12/03/19 04:40 Potassium 4.2 mmol/L (3.5-5.1) 12/03/19 04:40 Chloride 102 mmol/L (98-107) 12/03/19 04:40 Carbon Dioxide 22.7 mmol/L (21-32) 12/03/19 04:40 BUN 25 mg/dL (7-18) H 12/03/19 04:40 Creatinine 1.19 mg/dL (0.70-1.30) 12/03/19 04:40 Est GFR (MDRD) Af Amer > 60 (>60) 12/03/19 04:40 Est GFR (MDRD) Non-Af > 60 (>60) 12/03/19 04:40 Glucose 304 mg/dL (65-99) H 12/03/19 04:40 POC Glucose (mg/dL) 347 mg/dL (65-99) H 12/03/19 11:17 Calcium 8.5 mg/dL (8.5-10.1) 12/03/19 04:40 Corrected Calcium 9.4 mg/dL (8.5-10.1) 12/03/19 04:40 Magnesium 1.9 mg/dL (1.7-2.9) 12/01/19 20:00 Ferritin 450 ng/mL (26-388) H 12/03/19 04:40 Total Bilirubin 0.40 mg/dL (0.2-1.0) 12/03/19 04:40 AST 21 Units/L (15-37) 12/03/19 04:40 ALT 34 Units/L (12-78) 12/03/19 04:40 Alkaline Phosphatase 79 Units/L (46-116) 12/03/19 04:40 Creatine Kinase 32 Units/L (39-308) L 12/01/19 09:38 CK-MB (CK-2) < 1.0 ng/mL (0-4.0) 12/01/19 09:38 CK/CKMB % Calc 3.1 % (<4) 12/01/19 09:38 Troponin I 0.03 ng/mL (0-1.5) 12/01/19 11:53 C-Reactive Protein 65.00 mg/L (0-3.0) H 12/03/19 04:40 Total Protein 7.1 g/dL (6.4-8.2) 12/03/19 04:40 Albumin 2.9 g/dL (3.4-5.0) L 12/03/19 04:40 Globulin 4.2 g/dL (2.5-4.5) 12/03/19 04:40 Albumin/Globulin Ratio 0.7 Ratio (1.1-2.1) L 12/03/19 04:40 Stool Description Liquid,brown,20g 12/02/19 17:53 Stool Description Liquid,brown/cl,20g 12/02/19 17:53 Stl Occult Blood (IFOB) Negative (NEGATIVE) 12/02/19 17:53 Stool for White Cells Negative (NEGATIVE) 12/02/19 17:53 Stl C. diff Tox B Gene Negative (NEGATIVE) 12/02/19 17:53 Stl C. diff [id number] Negative (NEGATIVE) 12/02/19 17:53 Cryptosporid parvum Ag Negative (NEGATIVE) 12/02/19 17:53 Giardia lamblia Ag Negative (NEGATIVE) 12/02/19 17:53 Blood Type O NEGATIVE 12/01/19 20:00 - Plan (1) COVID-19 virus infection Status: Acute Plan: NS AT 75 ML/HR, REMDESIVIR 2100MG IV DAILY, LEVAQUIN 500MG IV DAILY, SOLU- MEDROL 80MG IV Q8H, PEPCID 20MG IV Q12H, ALBUTEROL NEB [place] BID AND Q4H PRN, PULMICORT NEBS BID, MUCOMYST 200MG BID IN NEB [place], LOVENOX 30MG SC BID, THE MAGNESIUM PROTOCOL, ZINC 220MG PO BID, AND HOME MEDICATIONS WERE RESUMED. (2) Acute respiratory disease due to COVID-19 virus Status: Acute (3) AMS (altered mental status) Status: Acute Qualifiers: Altered mental status type: transient alteration of awareness Qualified Code(s): R40.4 - Transient alteration of awareness (4) Diarrhea Status: Acute Qualifiers: Diarrhea type: presumed infectious Qualified Code(s): R19.7 - Diarrhea, unspecified Plan: OBTAIN STOOL STUDIES (5) HTN (hypertension) Status: Chronic Qualifiers: Hypertension type: essential hypertension Qualified Code(s): I10 - Essential (primary) hypertension Plan: CONTINUE HOME MEDS (6) Diabetes Status: Chronic Qualifiers: Diabetes mellitus type: type 2 Diabetes mellitus half-way insulin use: with 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
--- NOTE | 2019-12-03 13:42 | PCM.PROG ---
Progress Note - Progress Note for Day of Date of Exam: 12/03/19 - Subjective Subjective: IS BEING TREATED FOR COVID-19, ACUTE BRONCHITIS, RESPIRATORY DISTRESS, AMS, AND HYPOMAGNESEMIA. TODAY, HE IS ALERT AND ORIENTED, LYING IN BED ON MORNING ROUNDS. HE CONTINUES WITH COMPLAINTS OF COUGH, SHORTNESS OF BREATH, AND DIARRHEA AT TIMES. HE HAS BEEN UTILIZING OXYGEN VIA NASAL CANNULA AT 2L/MIN. ON EXAMINATION, HEART IS REGULAR IN RATE AND RHYTHM. BILATERAL LUNGS ARE NOTED WITH DIMINISHED LUNG SOUNDS THROUGHOUT. ABDOMEN IS ROUND, SOFT, AND NON-TENDER WITH HYPERACTIVE BOWEL SOUNDS. HIS VITALS THIS MORNING ARE: 97.7-61-18-95%RA-166/83. LABS WERE OBTAINED. ABNORMAL LAB VALUES INCLUDE THE FOLLOWING: WBC 11.2, RBC 4.46, HCT 41.4, BUN 25, GLUCOSE 304, FERRITIN 450, CRP 65.0, ALBUMIN 2.9. ABG REVEALED: PH 7.450, PC02 32.0, P02 74.0, HC03 22.2, BASE EXCESS -1.1, FI02 21.0. BLOOD CULTURES ARE PENDING. A CHEST XRAY WAS OBTAINED AND REVEALED: Chronic interstitial lung changes without focal infiltrate or other airspace disease. STOOL STUDIES WERE SET UP YESTERDAY AND WAS POSITIVE FOR CAMPYLOBACTER. HE IS CURRENTLY RECEIVING NS AT 75 ML/HR, REMDESIVIR 100MG IV DAILY, LEVAQUIN 500MG IV DAILY, SOLU-MEDROL 80MG IV Q8H, PEPCID 20MG IV Q12H, ALBUTEROL NEB TX BID AND Q4H PRN, PULMICORT NEBS BID, MUCOMYST 200MG BID IN NEB [place], LOVENOX 30MG SC BID, THE MAGNESIUM PROTOCOL, ZINC 220MG PO BID, AND HOME MEDICATIONS WERE RESUMED. WE DISCONTINUED THE LEVAQUIN AND STARTED CIPRO 400MG I V Q12H. TODAY, WE WILL DISCONTINUE THE REMDESIVIR. OTHERWISE, WE WILL FOLLOW UP WITH AM LABS, CHEST XRAY, EKG, AND CONTINUE TO MONITOR. - Past Medical Family Social History Past Med/Fam/Surg Hx: No changes since H&P Allergies: Allergies No Known Drug Allergies Allergy (Verified 12/01/19 09:26) - Review of Systems ROS: No change since H&P - Vital Signs and I&O's Vital Signs: Temperature 97.7 F Pulse Rate [Right Brachial] 62 Pulse Rate [Left Radial] 96 Pulse Rate 73 Respiratory Rate 22 Blood Pressure [Right Arm] 146/70 Blood Pressure [Left Arm] 111/62 Blood Pressure 127/61 O2 Sat by Pulse Oximetry 96 Intake and Output: Intake & Output 12/01/19 12/02/19 12/03/19 12/04/19 11:59 11:59 11:59 11:59 Intake Total 2600 / 2600 4092 / 4092 Output Total 2150 / 2150 Balance 450 / 450 4092 / 4092 - Physical Exam Oriented: Person Eyes: Normal Ear: Normal Nose: Normal Throat: Normal Respiratory: Generalized, Diminished Cardiovascular: Normal : Normal Auscultation: Bowel Sounds: Normal Palpation: Normal Tenderness: Normal Skin: Normal Musculoskeletal: Normal Psychiatric: Normal Mood Description: Calm Affect: Normal Speech Pattern: Clear, Appropriate - Laboratory and Diagnostics Result Diagrams: 12/03/19 04:40 12/03/19 04:40 Labs: 12/02/19 17:30 Sputum - Expectorated Sputum Sputum Culture - Preliminary 12/02/19 17:30 Sputum - Expectorated Sputum - Final 12/02/19 17:53 Stool Stool Culture - Preliminary 12/02/19 17:53 Stool - Final Laboratory WBC 11.2 X10^3/uL (3.6-10.0) H 12/03/19 04:40 RBC 4.46 X10^6/uL (4.7-6.0) L 12/03/19 04:40 Hgb 14.0 g/dL (13.5-18.0) 12/03/19 04:40 Hct 41.4 % (42.0-54.0) L 12/03/19 04:40 MCV 92.8 fL (80.0-100.0) 12/03/19 04:40 MCH 31.4 pg (27.0-34.0) 12/03/19 04:40 MCHC 33.8 g/dL (33.0-35.0) 12/03/19 04:40 RDW 13.8 % (11.6-16.5) 12/03/19 04:40 Plt Count 208 X10^3/uL (150.0-450.0) 12/03/19 04:40 Plt Count Comment Adequate (ADEQUATE) 12/03/19 04:40 MPV 8.0 fL (7.4-11.0) 12/03/19 04:40 Neut % (Auto) 90.1 % (42.0-75.0) H 12/03/19 04:40 Lymph % (Auto) 7.1 % (21.0-51.0) L 12/03/19 04:40 [place] % (Auto) 2.8 % (0.0-13.0) 12/03/19 04:40 Eos % (Auto) 0.0 % (0.9-2.9) L 12/03/19 04:40 Baso % (Auto) 0 % (0.2-1.0) L 12/03/19 04:40 Neut # (Auto) 10.1 x10^3/uL (2.2-4.8) H 12/03/19 04:40 Lymph # (Auto) 0.8 X10^3/uL (1.3-2.9) L 12/03/19 04:40 [place] # (Auto) 0.3 x10^3/uL (0.3-0.8) 12/03/19 04:40 Eos # (Auto) 0.0 x10^3/uL (0.0-0.2) 12/03/19 04:40 Baso # (Auto) 0.0 X10^3/uL (0.0-0.1) 12/03/19 04:40 Absolute Nucleated RBC 0.1 /100WBC 12/03/19 04:40 Total Counted 100 12/03/19 04:40 Neutrophils % (Manual) 86 % (39-76) H 12/03/19 04:40 Band Neutrophils % 4 % (0-10) 12/02/19 04:25 Lymphocytes % (Manual) 10 % (13-43) L 12/03/19 04:40 Monocytes % (Manual) 3 % (4-9) L 12/03/19 04:40 Eosinophils % (Manual) 1 % (0-6) 12/03/19 04:40 Metamyelocytes % 1 12/02/19 04:25 Plt Morphology Comment Normal (NORMAL) 12/03/19 04:40 RBC Morphology Normal (NORMAL) 12/03/19 04:40 PT 13.5 SECONDS (11.8-14.3) 12/01/19 09:38 INR Target Range - 12/01/19 09:38 INR 1.06 (0.8-1.3) 12/01/19 09:38 APTT 29.1 SECONDS (22.9-36.5) 12/01/19 09:38 PTT Comment - 12/01/19 09:38 D-Dimer 588 ng/mL (0-400) H* 12/01/19 09:38 Sample Site Rrad 12/03/19 05:35 ABG pH 7.450 (7.35-7.45) 12/03/19 05:35 ABG pCO2 32.0 mmHg (35.0-45.0) L 12/03/19 05:35 ABG pO2 74.0 mmHg (80.0-100.0) L 12/03/19 05:35 ABG HCO3 22.2 mmol/L (22-26) 12/03/19 05:35 ABG O2 Saturation 95.0 % (90-100) 12/03/19 05:35 ABG Base Excess -1.1 mmol/L (-2.0-2.0) 12/03/19 05:35 Bao Test Pos 12/03/19 05:35 A-a Gradient 86.0 mmHg 12/03/19 05:35 FiO2 21 12/03/19 05:35 Blood Gas Comments Mary Jane abg well-mtf 12/03/19 05:35 Sodium 136 mmol/L (136-145) 12/03/19 04:40 Corrected Sodium 141 mmol/L (136-145) 12/03/19 04:40 Potassium 4.2 mmol/L (3.5-5.1) 12/03/19 04:40 Chloride 102 mmol/L (98-107) 12/03/19 04:40 Carbon Dioxide 22.7 mmol/L (21-32) 12/03/19 04:40 BUN 25 mg/dL (7-18) H 12/03/19 04:40 Creatinine 1.19 mg/dL (0.70-1.30) 12/03/19 04:40 Est GFR (MDRD) Af Amer > 60 (>60) 12/03/19 04:40 Est GFR (MDRD) Non-Af > 60 (>60) 12/03/19 04:40 Glucose 304 mg/dL (65-99) H 12/03/19 04:40 POC Glucose (mg/dL) 347 mg/dL (65-99) H 12/03/19 11:17 Calcium 8.5 mg/dL (8.5-10.1) 12/03/19 04:40 Corrected Calcium 9.4 mg/dL (8.5-10.1) 12/03/19 04:40 Magnesium 1.9 mg/dL (1.7-2.9) 12/01/19 20:00 Ferritin 450 ng/mL (26-388) H 12/03/19 04:40 Total Bilirubin 0.40 mg/dL (0.2-1.0) 12/03/19 04:40 AST 21 Units/L (15-37) 12/03/19 04:40 ALT 34 Units/L (12-78) 12/03/19 04:40 Alkaline Phosphatase 79 Units/L (46-116) 12/03/19 04:40 Creatine Kinase 32 Units/L (39-308) L 12/01/19 09:38 CK-MB (CK-2) < 1.0 ng/mL (0-4.0) 12/01/19 09:38 CK/CKMB % Calc 3.1 % (<4) 12/01/19 09:38 Troponin I 0.03 ng/mL (0-1.5) 12/01/19 11:53 C-Reactive Protein 65.00 mg/L (0-3.0) H 12/03/19 04:40 Total Protein 7.1 g/dL (6.4-8.2) 12/03/19 04:40 Albumin 2.9 g/dL (3.4-5.0) L 12/03/19 04:40 Globulin 4.2 g/dL (2.5-4.5) 12/03/19 04:40 Albumin/Globulin Ratio 0.7 Ratio (1.1-2.1) L 12/03/19 04:40 Stool Description Liquid,brown,20g 12/02/19 17:53 Stool Description Liquid,brown/cl,20g 12/02/19 17:53 Stl Occult Blood (IFOB) Negative (NEGATIVE) 12/02/19 17:53 Stool for White Cells Negative (NEGATIVE) 12/02/19 17:53 Stl C. diff Tox B Gene Negative (NEGATIVE) 12/02/19 17:53 Stl C. diff [id number] Negative (NEGATIVE) 12/02/19 17:53 Cryptosporid parvum Ag Negative (NEGATIVE) 12/02/19 17:53 Giardia lamblia Ag Negative (NEGATIVE) 12/02/19 17:53 Blood Type O NEGATIVE 12/01/19 20:00 - Plan (1) COVID-19 virus infection Status: Acute Plan: NS AT 75 ML/HR, CIPRO 400MG IV Q12H, SOLU-MEDROL 80MG IV Q8H, PEPCID 20MG IV Q12H, ALBUTEROL NEB TX BID AND Q4H PRN, PULMICORT NEBS BID, MUCOMYST 200MG BID IN NEB [place], LOVENOX 30MG SC BID, THE MAGNESIUM PROTOCOL, ZINC 220MG PO BID, AND HOME MEDICATIONS WERE RESUMED. (2) Acute respiratory disease due to COVID-19 virus Status: Acute (3) AMS (altered mental status) Status: Acute Qualifiers: Altered mental status type: transient alteration of awareness Qualified Code(s): R40.4 - Transient alteration of awareness (4) Campylobacter diarrhea Status: Acute Plan: CIPRO 400MG IV Q12H (5) HTN (hypertension) Status: Chronic Qualifiers: Hypertension type: essential hypertension Qualified Code(s): I10 - Essential (primary) hypertension Plan: CONTINUE HOME MEDS (6) Diabetes Status: Chronic Qualifiers: Diabetes mellitus type: type 2 Diabetes mellitus chcf insulin use: with chcf use Diabetes mellitus complication status: without complication Qualified Code(s): E11.9 - Type 2 diabetes mellitus without complications; 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
[2019-12-03] MEDS ORDERED: SNACK - Diabetic Appropriate PO SCH (20:00)
[2019-12-03] MEDS: CARDURA PO SCH (21:59)
[2019-12-03] MEDS: LIPITOR TAB 40 MG PO SCH (22:00)
[2019-12-03] MEDS: TYLENOL 325 MG TAB PO PRN (22:02)
[2019-12-04] MEDS ORDERED: GLUCOPHAGE ONE (06:19)
[2019-12-04 06:20] LABS: ALANINE AMINOTRANSFERASE 31 Units/L (12-78); ALBUMIN 2.8 g/dL (3.4-5.0); ALKALINE PHOSPHATASE 76 Units/L (46-116); ASPARTATE AMINO TRANSFERASE 19 Units/L (15-37); BLOOD UREA NITROGEN 28 mg/dL (7-18); CALCIUM 8.6 mg/dL (8.5-10.1); CARBON DIOXIDE 22.8 mmol/L (21-32); CHLORIDE 104 mmol/L (98-107); COR CA(FOR HYPOALB) 9.6 mg/dL (8.5-10.1); COR NA(FOR HYPERGLY) 142 mmol/L (136-145); CREATININE 1.15 mg/dL (0.70-1.30); SODIUM 138 mmol/L (136-145); TOTAL PROTEIN 6.8 g/dL (6.4-8.2); eGFR NON BLACK RACES > 60 (>60)
[2019-12-04] MEDS: GLUCOPHAGE PO SCH (06:27)
[2019-12-04] MEDS: HumuLIN R SUBCUT PRN ×2 (06:29→11:45)
[2019-12-04 06:31] LABS: BASOPHILS % (AUTO) 0.1 % (0.2-1.0); HEMATOCRIT 41.4 % (42.0-54.0); HEMOGLOBIN 13.9 g/dL (13.5-18.0); LYMPHOCYTES # (AUTO) 0.8 X10^3/uL (1.3-2.9); LYMPHOCYTES % (AUTO) 6.3 % (21.0-51.0); MEAN CORPUSCULAR HEMOGLOBIN 31.3 pg (27.0-34.0); MEAN CORPUSCULAR HGB CONC 33.5 g/dL (33.0-35.0); MEAN CORPUSCULAR VOLUME 93.4 fL (80.0-100.0); MEAN PLATELET VOLUME 8.1 fL (7.4-11.0); MONOCYTES # (AUTO) 0.6 x10^3/uL (0.3-0.8); MONOCYTES % (AUTO) 4.4 % (0.0-13.0); NEUTROPHILS # (AUTO) 11.7 x10^3/uL (2.2-4.8); NEUTROPHILS % (AUTO) 89.2 % (42.0-75.0); PLATELET COUNT 247 X10^3/uL (150.0-450.0); RED BLOOD COUNT 4.43 X10^6/uL (4.7-6.0); RED CELL DISTRIBUTION WIDTH 14.2 % (11.6-16.5); WHITE BLOOD COUNT 13.1 X10^3/uL (3.6-10.0)
--- NOTE | 2019-12-04 08:14 | RAD ---
HISTORYSOBSTUDYCHEST, 1 VIEWCOMPARISON[One day prior]TECHNIQUE[AP view of the chest.]FINDINGS[Cardiac silhouette is mildly enlarged. There are scattered bilateral mid lung predominant airspace opacities. No pleural effusion or pneumothorax.Soft tissue attenuation limits evaluation.]IMPRESSION[Development of bilateral scattered airspace opacities suspicious for pneumonia.]Electronically signed by: Richar Oswald (Dec 04, 2019 06:26:51)
[2019-12-04] MEDS: COREG TAB 6.25 MG PO SCH (08:26)
[2019-12-04] MEDS: LOVENOX INJ 30 MG SYR SC SCH (08:26)
[2019-12-04] MEDS: ZINC SULFATE PO SCH (08:26)
[2019-12-04] MEDS: NEURONTIN TAB 600 MG PO SCH (08:26)
[2019-12-04] MEDS: PEPCID 20 MG IV PREMIX* 20 MG/50 ML BAG IV SCH (08:27)
[2019-12-04] MEDS: CIPRO IV 400 MG PREMIX* 400 MG/200 ML IV.SOLN. IV SCH (09:00)
[2019-12-04] MEDS: PULMICORT NEB TX 0.5 MG NEB SCH (09:36)
[2019-12-04] MEDS: PROVENTIL NEB TX 0.083% 2.5MG/ 3ML NEB SCH (09:37)
[2019-12-04] MEDS: MUCOMYST 20% 200 MG/ML NEB SCH (09:37)
[2019-12-04] MEDS: NS 1000 ML 1,000 ML IV SCH (11:41)
[2019-12-04] MEDS: SOLU-Medrol 40 MG VIAL IVP SCH ×2 (11:46→13:32)
[2019-12-04 12:11] VITALS: BP 165/77
== END 2019-12-04 15:45 | disposition home or self-care (01) | DRG 178 ==
LOC: ER 07:54 → MED/SURG 11:38
PROVIDERS: ADMIT Obstetrics & Gynecology Obstetrics; ATTEND Internal Medicine
DX: A04.5 Campylobacter enteritis; U07.1 COVID-19; Z79.01 Long term (current) use of anticoagulants; J20.8 Acute bronchitis due to other specified organisms; R19.7 Diarrhea, unspecified; R06.03 Acute respiratory distress; I10 Essential (primary) hypertension; R40.4 Transient alteration of awareness; Z79.4 Long term (current) use of insulin; E83.42 Hypomagnesemia; E11.65 Type 2 diabetes mellitus with hyperglycemia

== ENCOUNTER 2019-12-07 08:27 | Inpatient (IN) ==
[2019-12-07 08:35] VITALS: BMI 27.3
[2019-12-07] MEDS ORDERED: XOPENEX 1.25 MG/3 ML NEBULE NEB ONE ×3 (09:13→13:20)
[2019-12-07 09:36] LABS: BASOPHILS # (AUTO) 0.1 X10^3/uL (0.0-0.1); BASOPHILS % (AUTO) 0.3 % (0.2-1.0); EOSINOPHILS % (AUTO) 0.1 % (0.9-2.9); HEMATOCRIT 41.2 % (42.0-54.0); HEMOGLOBIN 13.9 g/dL (13.5-18.0); LYMPHOCYTES # (AUTO) 0.9 X10^3/uL (1.3-2.9); LYMPHOCYTES % (AUTO) 4.5 % (21.0-51.0); MEAN CORPUSCULAR HEMOGLOBIN 30.9 pg (27.0-34.0); MEAN CORPUSCULAR HGB CONC 33.7 g/dL (33.0-35.0); MEAN CORPUSCULAR VOLUME 91.8 fL (80.0-100.0); MEAN PLATELET VOLUME 8.1 fL (7.4-11.0); MONOCYTES # (AUTO) 0.6 x10^3/uL (0.3-0.8); MONOCYTES % (AUTO) 3.3 % (0.0-13.0); NEUTROPHILS # (AUTO) 17.8 x10^3/uL (2.2-4.8); NEUTROPHILS % (AUTO) 91.8 % (42.0-75.0); PLATELET COUNT 217 X10^3/uL (150.0-450.0); RED BLOOD COUNT 4.48 X10^6/uL (4.7-6.0); RED CELL DISTRIBUTION WIDTH 14.2 % (11.6-16.5); WHITE BLOOD COUNT 19.4 X10^3/uL (3.6-10.0)
[2019-12-07 09:58] LABS: BLOOD UREA NITROGEN 24 mg/dL (7-18); CALCIUM 9.3 mg/dL (8.5-10.1); CARBON DIOXIDE 24.6 mmol/L (21-32); CHLORIDE 95 mmol/L (98-107); COR NA(FOR HYPERGLY) 135 mmol/L (136-145); CREATININE 1.27 mg/dL (0.70-1.30); SODIUM 130 mmol/L (136-145); TROPONIN I 0.04 ng/mL (0-1.5); eGFR NON BLACK RACES 59 (>60)
[2019-12-07 10:03] LABS: ALANINE AMINOTRANSFERASE 48 Units/L (12-78); ALBUMIN 2.9 g/dL (3.4-5.0); ALKALINE PHOSPHATASE 94 Units/L (46-116); ASPARTATE AMINO TRANSFERASE 28 Units/L (15-37); CKMB % 2.1 % (<4); COR CA(FOR HYPOALB) 10.2 mg/dL (8.5-10.1); CREATINE KINASE 48 Units/L (39-308); CREATINE KINASE MB < 1.0 ng/mL (0-4.0); PLATELET MORPHOLOGY COMMENT NORMAL (NORMAL); TOTAL PROTEIN 7.3 g/dL (6.4-8.2)
--- NOTE | 2019-12-07 10:04 | RAD ---
HISTORYCOVID +STUDYPortable AP chestCOMPARISONAugust 2019FINDINGSThere is persistent mild patchy diffuse peripheral airspace disease increased in severity in the right lower lobe but otherwise similar. There is no edema or effusion. The heart and mediastinum are unremarkable.IMPRESSIONPersistent multifocal infiltrates, increased in the right lower lobe, compatible with a pneumonitisElectronically signed by: CLARE PARDO (Dec 07, 2019 10:03:32)
[2019-12-07] MEDS ORDERED: HumuLIN R IV ONE (10:07)
--- NOTE | 2019-12-07 10:28 | DR.DIZZY ---
HPI Time seen Time Seen by Provider: 12/07/19 09:08 PCP Primary Care Physician: LYNN/MANUEL Complaint Chief Complaint:: PT C/O WEAKNESS, NOT EATING, HIGH SUGAR, AND UNABLE TO GET HIS STRENGTH BACK. PT STATES HE WAS COVID POSITIVE AND WAS ADMITTED IN THE HOSPITAL AND DISCHARGED THIS PAST TUESDAY. PT'S STATES HE WAS ADMINISTERED THE PLASMA ALSO A TREATMENT WHILE HE WAS ADMITTED. COVID-19 Coronavirus risk:travel/contact w/high risk person: Yes Has patient experienced Coronavirus symptoms: Yes Coronavirus symptoms experienced: Shortness of Breath Source History Provided: Family Member Mode of Arrival Mode of Arrival: Wheelchair Timing Onset of Chief Complaint: 12/07/19 Context Stroke Symptoms: None PMH PMH Past Medical History: Yes Past Medical History: Arthritis, Diabetes, Dyslipidemia, Hypertension and Kidney Stones Past Surgical History: Yes Surgical History: Ortho Surgery Family History History of Family Medical Conditions: Yes Family Medical History: Diabetes Mellitus and Hypertension Social History Does any household member use tobacco: No Alcohol Use: None Do you use any recreational Drugs:: No Lives With: Family Lives Where: Home Travel Risk Coronavirus risk:travel/contact w/high risk person: Yes Has patient experienced Coronavirus symptoms: Yes Coronavirus symptoms experienced: Shortness of Breath Infectious screening In the last 2 months have you had wt loss of >10#?: NO Have you had fever, night sweats or hemotysis?: No Have you traveled outside the country in the last 6 months?: No Isolation: Droplet PE Vital Signs Vitals: Temperature 98.7 F Pulse Rate [Right Radial] 99 Pulse Rate 98 Respiratory Rate 22 Blood Pressure [Right Arm] 130/67 Blood Pressure 140/72 O2 Sat by Pulse Oximetry 94 COURSE Consultation Called: 10:11 Call Returned: 10:26 Consultation Comments: case discussed with Dr. Harris admit for covid19 protocol. Call Berna Gerard to enter orders for his covid19 protocol. [facility] Labs Reviewed Result Diagrams: 12/07/19 09:23 12/07/19 09:23 Laboratory: WBC 19.4 X10^3/uL (3.6-10.0) H 12/07/19 09:23 RBC 4.48 X10^6/uL (4.7-6.0) L 12/07/19 09:23 Hgb 13.9 g/dL (13.5-18.0) 12/07/19 09: Hct 41.2 % (42.0-54.0) L 12/07/19 09: MCV 91.8 fL (80.0-100.0) 12/07/19 09: MCH 30.9 pg (27.0-34.0) 12/07/19 09: MCHC 33.7 g/dL (33.0-35.0) 12/07/19: RDW 14.2 % (11.6-16.5) 12/07/19 09: Plt Count 217 X10^3/uL (150.0-450.0) 12/07/19 09: Plt Count Comment Adequate (ADEQUATE) 12/07/19: MPV 8.1 fL (7.4-11.0) 12/07/19 09: Neut % (Auto) 91.8 % (42.0-75.0) H 12/07/19 09: Lymph % (Auto) 4.5 % (21.0-51.0) L 12/07/19 09: [place] % (Auto) 3.3 % (0.0-13.0) 12/07/19 09: Eos % (Auto) 0.1 % (0.9-2.9) L 12/07/19: Baso % (Auto) 0.3 % (0.2-1.0) 12/07/19 09: Neut # (Auto) 17.8 x10^3/uL (2.2-4.8) H 12/07/19 09: Lymph # (Auto) 0.9 X10^3/uL (1.3-2.9) L 12/07/19 09:23 [place] # (Auto) 0.6 x10^3/uL (0.3-0.8) 12/07/19 09: Eos # (Auto) 0.0 x10^3/uL (0.0-0.2) 12/07/19 09: Baso # (Auto) 0.1 X10^3/uL (0.0-0.1) 12/07/19: Absolute Nucleated RBC 0.0 /100WBC 12/07/19 09:23 Total Counted 100 12/07/19 09:23 Neutrophils % (Manual) 90 % (39-76) H 12/07/19 09:23 Lymphocytes % (Manual) 7 % (13-43) L 12/07/19 09:23 Monocytes % (Manual) 3 % (4-9) L 12/07/19 09:23 Plt Morphology Comment Normal (NORMAL) 12/07/19 09:23 RBC Morphology Normal (NORMAL) 12/07/19 09:23 Sample Site Right brachial 12/07/19 11:58 ABG pH 7.490 (7.35-7.45) H 12/07/19 11:58 ABG pCO2 34.0 mmHg (35.0-45.0) L 12/07/19 11:58 ABG pO2 73.0 mmHg (80.0-100.0) L 12/07/19 11:58 ABG HCO3 25.9 mmol/L (22-26) 12/07/19 11:58 ABG O2 Saturation 96.0 % (90-100) 12/07/19 11:58 ABG Base Excess 2.8 mmol/L (-2.0-2.0) H 12/07/19 11:58 Bao Test Na 12/07/19 11:58 A-a Gradient 84.0 mmHg 12/07/19 11:58 FiO2 28.0 12/07/19 11:58 Blood Gas Comments Mary Jane well aw 12/07/19 11:58 Sodium 130 mmol/L (136-145) L 12/07/19 09:23 Corrected Sodium 135 mmol/L (136-145) L 12/07/19 09:23 Potassium 4.5 mmol/L (3.5-5.1) 12/07/19 09:23 Chloride 95 mmol/L (98-107) L 12/07/19 09:23 Carbon Dioxide 24.6 mmol/L (21-32) 12/07/19 09:23 BUN 24 mg/dL (7-18) H 12/07/19 09:23 Creatinine 1.27 mg/dL (0.70-1.30) 12/07/19 09:23 Est GFR (MDRD) Af Amer > 60 (>60) 12/07/19 09:23 Est GFR (MDRD) Non-Af 59 (>60) 12/07/19 09:23 Glucose 302 mg/dL (65-99) H 12/07/19 09:23 Calcium 9.3 mg/dL (8.5-10.1) 12/07/19 09:23 Corrected Calcium 10.2 mg/dL (8.5-10.1) H 12/07/19 09:23 Ferritin 590 ng/mL (26-388) H 12/07/19 09:23 Total Bilirubin 1.10 mg/dL (0.2-1.0) H 12/07/19 09:23 AST 28 Units/L (15-37) 12/07/19 09:23 ALT 48 Units/L (12-78) 12/07/19 09:23 Alkaline Phosphatase 94 Units/L (46-116) 12/07/19 09:23 Creatine Kinase 48 Units/L (39-308) 12/07/19 09:23 CK-MB (CK-2) < 1.0 ng/mL (0-4.0) 12/07/19 09:23 CK/CKMB % Calc 2.1 % (<4) 12/07/19 09:23 Troponin I 0.04 ng/mL (0-1.5) 12/07/19 09:23 C-Reactive Protein 81.60 mg/L (0-3.0) H 12/07/19 09:23 Total Protein 7.3 g/dL (6.4-8.2) 12/07/19 09:23 Albumin 2.9 g/dL (3.4-5.0) L 12/07/19 09:23 Globulin 4.4 g/dL (2.5-4.5) 12/07/19 09:23 Albumin/Globulin Ratio 0.7 Ratio (1.1-2.1) L 12/07/19 09:23 Blood Type O NEGATIVE 12/07/19 11:50 Opioid Opioid Risk Tool Age (Scar box if 16-45): No History of Preadolescent Sexual Abuse: No Total: 0 Total Score Risk Category: Low Risk Copyright: Emil DÍAZ predicting aberrant behaviors
[2019-12-07] MEDS ORDERED: HumuLIN R ONE (10:44)
[2019-12-07] MEDS ORDERED: TUSSIONEX PENNKINETIC SUSP PO PRN (11:37)
[2019-12-07] MEDS ORDERED: LEVAQUIN PREMIX IV 500 MG 500 MG/100 ML BAG IV SCH (12:00)
[2019-12-07 12:07] LABS: ABG BASE EXCESS 2.8 mmol/L (-2.0-2.0); ABG HCO3 25.9 mmol/L (22-26)
[2019-12-07] MEDS ORDERED: LEVAQUIN PREMIX IV 500 MG 500 MG/100 ML BAG IV ONE (12:14)
[2019-12-07] MEDS ORDERED: NS 1/2 1000 ML IV 1,000 ML IV ONE ×2 (12:15→20:00)
[2019-12-07] MEDS: NS 1/2 1000 ML IV 1,000 ML IV SCH (12:24)
[2019-12-07] MEDS ORDERED: PULMICORT NEB TX 0.5 MG NEB ONE (13:20)
[2019-12-07] MEDS ORDERED: MUCOMYST (RESPIRATORY USE ONLY) ONE (13:23)
[2019-12-07] MEDS: REMDESIVIR (INVESTIGATIONAL DRUG GS-5734) 100 MG in NS 250 ML IV 250 ML IV SCH (14:00)
[2019-12-07] MEDS: MUCOMYST 20% 200 MG/ML NEB SCH ×2 (14:20→21:00)
[2019-12-07] MEDS: XOPENEX 1.25 MG/3 ML NEBULE NEB SCH ×2 (14:20→21:00)
[2019-12-07] MEDS: PULMICORT NEB TX 0.5 MG NEB SCH ×2 (14:20→21:00)
[2019-12-07] MEDS: ROBITUSSIN DM PO SCH ×3 (15:13→21:18)
[2019-12-07] MEDS: SOLU-Medrol 40 MG VIAL IVP SCH ×2 (16:36→21:18)
[2019-12-07] MEDS: VSL#3 PO SCH (16:36)
[2019-12-07] MEDS ORDERED: PLETAL PO PRN (19:01)
[2019-12-07] MEDS ORDERED: DOXAZOSIN 8 MG PO SCH (19:15)
[2019-12-07] MEDS ORDERED: COLACE CAP 100 MG PO ONE (19:58)
[2019-12-07] MEDS ORDERED: GLUCOPHAGE ONE (19:59)
[2019-12-07] MEDS ORDERED: COREG TAB 6.25 MG ONE (19:59)
[2019-12-07] MEDS ORDERED: CARDURA ONE (19:59)
[2019-12-07] MEDS ORDERED: NEURONTIN TAB 600 MG ONE (19:59)
[2019-12-07] MEDS ORDERED: LIPITOR TAB 40 MG ONE (19:59)
[2019-12-07] MEDS ORDERED: TESSALON PERLES PO ONE (19:59)
[2019-12-07] MEDS ORDERED: SOLU-Medrol 40 MG VIAL ONE (20:00)
[2019-12-07] MEDS ORDERED: ROBITUSSIN DM ONE (20:00)
[2019-12-07] MEDS ORDERED: MILK OF MAGNESIA ONE (20:00)
[2019-12-07] MEDS: CARDURA PO SCH (21:17)
[2019-12-07] MEDS: TESSALON PERLES PO SCH (21:17)
[2019-12-07] MEDS: COREG TAB 6.25 MG PO SCH (21:17)
[2019-12-07] MEDS: GLUCOPHAGE PO SCH (21:17)
[2019-12-07] MEDS: COLACE CAP 100 MG PO SCH (21:17)
[2019-12-07] MEDS: LIPITOR TAB 40 MG PO SCH (21:18)
[2019-12-07] MEDS: NEURONTIN TAB 600 MG PO SCH (21:20)
[2019-12-07] MEDS: MILK OF MAGNESIA PO SCH (21:21)
[2019-12-08] MEDS: NS 1/2 1000 ML IV 1,000 ML IV SCH ×2 (01:49→16:16)
[2019-12-08] MEDS: XOPENEX 1.25 MG/3 ML NEBULE NEB SCH ×3 (05:11→20:25)
[2019-12-08 05:12] LABS: ABG ALLEN TEST POS; ABG BASE EXCESS -0.5 mmol/L (-2.0-2.0); ABG HCO3 24.2 mmol/L (22-26)
[2019-12-08 06:39] LABS: BASOPHILS % (AUTO) 0.1 % (0.2-1.0); HEMATOCRIT 39.3 % (42.0-54.0); HEMOGLOBIN 13.4 g/dL (13.5-18.0); LYMPHOCYTES # (AUTO) 0.6 X10^3/uL (1.3-2.9); LYMPHOCYTES % (AUTO) 5.3 % (21.0-51.0); MEAN CORPUSCULAR HEMOGLOBIN 31.3 pg (27.0-34.0); MEAN PLATELET VOLUME 8.1 fL (7.4-11.0); MONOCYTES # (AUTO) 0.1 x10^3/uL (0.3-0.8); MONOCYTES % (AUTO) 0.6 % (0.0-13.0); NEUTROPHILS # (AUTO) 11.1 x10^3/uL (2.2-4.8); PLATELET COUNT 210 X10^3/uL (150.0-450.0); RED BLOOD COUNT 4.27 X10^6/uL (4.7-6.0); RED CELL DISTRIBUTION WIDTH 13.8 % (11.6-16.5); WHITE BLOOD COUNT 11.8 X10^3/uL (3.6-10.0)
[2019-12-08] MEDS: SOLU-Medrol 40 MG VIAL IVP SCH ×3 (06:39→21:02)
[2019-12-08] MEDS: TESSALON PERLES PO SCH ×3 (06:39→21:02)
[2019-12-08 07:00] LABS: ALANINE AMINOTRANSFERASE 42 Units/L (12-78); ALBUMIN 2.7 g/dL (3.4-5.0); ALKALINE PHOSPHATASE 82 Units/L (46-116); ASPARTATE AMINO TRANSFERASE 26 Units/L (15-37); BLOOD UREA NITROGEN 27 mg/dL (7-18); CALCIUM 8.5 mg/dL (8.5-10.1); CARBON DIOXIDE 22.7 mmol/L (21-32); CHLORIDE 97 mmol/L (98-107); COR CA(FOR HYPOALB) 9.5 mg/dL (8.5-10.1); COR NA(FOR HYPERGLY) 138 mmol/L (136-145); CREATININE 1.18 mg/dL (0.70-1.30); SODIUM 133 mmol/L (136-145); TOTAL PROTEIN 7.1 g/dL (6.4-8.2); eGFR NON BLACK RACES > 60 (>60)
[2019-12-08] MEDS ORDERED: GLUCOPHAGE ONE ×2 (07:01→20:13)
[2019-12-08] MEDS ORDERED: CIPRO IV 200 MG PREMIX* 200 MG/100 ML BAG IV ONE (07:02)
[2019-12-08] MEDS ORDERED: NS 1/2 1000 ML IV 1,000 ML IV ONE ×2 (07:03→20:15)
[2019-12-08 07:06] LABS: BAND NEUTROPHILS % 6 % (0-10); PLATELET MORPHOLOGY COMMENT NORMAL (NORMAL)
--- NOTE | 2019-12-08 07:38 | RAD ---
HISTORYPneumoniaSTUDYAP [id number]/[id number] upper-normal heart size. Use/patchy bilateral infiltrates are essentially unchanged in distribution. There is no new consolidation, developing edema or pleural fluid.IMPRESSIONNo change in appearance of the chest. Persistent infiltrates/pneumonia.Electronically signed by: CELIA WADE (Dec 08, 2019 07:37:13)
[2019-12-08] MEDS: CIPRO IV 200 MG PREMIX* 200 MG/100 ML BAG IV SCH ×2 (08:55→21:01)
[2019-12-08] MEDS: GLUCOPHAGE PO SCH ×2 (08:56→21:00)
[2019-12-08] MEDS: COREG TAB 6.25 MG PO SCH ×2 (08:57→21:00)
[2019-12-08] MEDS: NEURONTIN TAB 600 MG PO SCH ×2 (08:58→20:58)
[2019-12-08] MEDS: VSL#3 PO SCH (08:59)
[2019-12-08] MEDS: ROBITUSSIN DM PO SCH ×4 (08:59→20:58)
[2019-12-08] MEDS: PULMICORT NEB TX 0.5 MG NEB SCH ×2 (10:00→20:25)
[2019-12-08] MEDS: REMDESIVIR (INVESTIGATIONAL DRUG GS-5734) 100 MG in NS 250 ML IV 250 ML IV SCH (10:18)
[2019-12-08] MEDS ORDERED: HumuLIN R ONE (11:44)
[2019-12-08] MEDS: HumuLIN R SUBCUT PRN ×2 (11:46→22:00)
[2019-12-08] MEDS: MUCOMYST (RESPIRATORY USE ONLY) NEB SCH ×2 (14:20→20:25)
[2019-12-08] MEDS: CARDURA PO SCH (20:58)
[2019-12-08] MEDS: MILK OF MAGNESIA PO SCH (20:59)
[2019-12-08] MEDS: LIPITOR TAB 40 MG PO SCH (20:59)
[2019-12-08] MEDS: COLACE CAP 100 MG PO SCH (21:00)
[2019-12-08] MEDS: SNACK - Diabetic Appropriate PO SCH (22:42)
[2019-12-09 05:24] LABS: ABG ALLEN TEST POS; ABG BASE EXCESS -0.7 mmol/L (-2.0-2.0); ABG HCO3 23.4 mmol/L (22-26)
[2019-12-09] MEDS: NS 1/2 1000 ML IV 1,000 ML IV SCH ×3 (05:31→20:30)
[2019-12-09] MEDS: SOLU-Medrol 40 MG VIAL IVP SCH (05:34)
[2019-12-09] MEDS: TESSALON PERLES PO SCH ×3 (05:34→21:22)
[2019-12-09] MEDS: MUCOMYST (RESPIRATORY USE ONLY) NEB SCH ×3 (05:38→21:00)
[2019-12-09] MEDS: XOPENEX 1.25 MG/3 ML NEBULE NEB SCH ×3 (05:38→21:00)
[2019-12-09] MEDS: HumuLIN R SUBCUT PRN ×3 (06:23→17:13)
[2019-12-09 06:25] LABS: BASOPHILS % (AUTO) 0.1 % (0.2-1.0); HEMATOCRIT 38.6 % (42.0-54.0); LYMPHOCYTES # (AUTO) 0.6 X10^3/uL (1.3-2.9); LYMPHOCYTES % (AUTO) 3.7 % (21.0-51.0); MEAN CORPUSCULAR HEMOGLOBIN 31.3 pg (27.0-34.0); MEAN CORPUSCULAR HGB CONC 33.7 g/dL (33.0-35.0); MEAN CORPUSCULAR VOLUME 92.9 fL (80.0-100.0); MEAN PLATELET VOLUME 8.5 fL (7.4-11.0); MONOCYTES # (AUTO) 0.5 x10^3/uL (0.3-0.8); NEUTROPHILS # (AUTO) 14.8 x10^3/uL (2.2-4.8); NEUTROPHILS % (AUTO) 93.2 % (42.0-75.0); PLATELET COUNT 229 X10^3/uL (150.0-450.0); RED BLOOD COUNT 4.16 X10^6/uL (4.7-6.0); RED CELL DISTRIBUTION WIDTH 14.1 % (11.6-16.5); WHITE BLOOD COUNT 15.9 X10^3/uL (3.6-10.0)
[2019-12-09 06:45] LABS: ALANINE AMINOTRANSFERASE 39 Units/L (12-78); ALBUMIN 2.4 g/dL (3.4-5.0); ALKALINE PHOSPHATASE 96 Units/L (46-116); ASPARTATE AMINO TRANSFERASE 24 Units/L (15-37); BLOOD UREA NITROGEN 27 mg/dL (7-18); CALCIUM 8.6 mg/dL (8.5-10.1); CARBON DIOXIDE 23.5 mmol/L (21-32); CHLORIDE 103 mmol/L (98-107); COR CA(FOR HYPOALB) 9.9 mg/dL (8.5-10.1); COR NA(FOR HYPERGLY) 141 mmol/L (136-145); SODIUM 138 mmol/L (136-145); TOTAL PROTEIN 6.5 g/dL (6.4-8.2); eGFR NON BLACK RACES > 60 (>60)
[2019-12-09 06:57] LABS: BAND NEUTROPHILS % 1 % (0-10); PLATELET MORPHOLOGY COMMENT NORMAL (NORMAL)
[2019-12-09] MEDS ORDERED: GLUCOPHAGE ONE ×2 (08:21→19:06)
[2019-12-09] MEDS: VSL#3 PO SCH (09:00)
[2019-12-09] MEDS: ROBITUSSIN DM PO SCH ×5 (09:00→20:33)
[2019-12-09] MEDS: GLUCOPHAGE PO SCH ×2 (09:01→20:32)
[2019-12-09] MEDS: NEURONTIN TAB 600 MG PO SCH ×2 (09:02→20:33)
[2019-12-09] MEDS: COREG TAB 6.25 MG PO SCH ×2 (09:03→20:31)
[2019-12-09] MEDS: CIPRO IV 200 MG PREMIX* 200 MG/100 ML BAG IV SCH ×2 (09:05→20:32)
[2019-12-09] MEDS: REMDESIVIR (INVESTIGATIONAL DRUG GS-5734) 100 MG in NS 250 ML IV 250 ML IV SCH (10:10)
[2019-12-09] MEDS: PULMICORT NEB TX 0.5 MG NEB SCH ×2 (10:25→21:00)
--- NOTE | 2019-12-09 14:10 | RAD ---
HISTORYSHORTNESS OF BREATHSTUDYCHEST, 1 VIEWCOMPARISONYesterdayFINDINGSThe trachea is midline. The cardiac silhouette is stable. The lungs demonstrate stable multifocal airspace opacities unchanged from prior. The bony thorax is unremarkable.IMPRESSIONStable multifocal airspace disease.Electronically signed by: SELVIN FRY (Dec 09, 2019 14:09:00)
[2019-12-09] MEDS: SOLU-Medrol 125 MG VIAL IVP SCH ×2 (14:20→21:22)
[2019-12-09] MEDS ORDERED: NS 1/2 1000 ML IV 1,000 ML IV ONE ×2 (16:29→19:07)
[2019-12-09] MEDS: SNACK - Diabetic Appropriate PO SCH (20:30)
[2019-12-09] MEDS: COLACE CAP 100 MG PO SCH (20:31)
[2019-12-09] MEDS: CARDURA PO SCH (20:31)
[2019-12-09] MEDS: LIPITOR TAB 40 MG PO SCH (20:33)
[2019-12-09] MEDS: MILK OF MAGNESIA PO SCH (20:36)
[2019-12-10] MEDS: SOLU-Medrol 125 MG VIAL IVP SCH ×3 (05:17→21:00)
[2019-12-10] MEDS: TESSALON PERLES PO SCH ×3 (05:17→21:00)
[2019-12-10] MEDS: MUCOMYST (RESPIRATORY USE ONLY) NEB SCH ×3 (05:34→21:10)
[2019-12-10] MEDS: XOPENEX 1.25 MG/3 ML NEBULE NEB SCH ×3 (05:34→21:10)
[2019-12-10] MEDS: HumuLIN R SUBCUT PRN ×3 (05:44→20:50)
[2019-12-10 06:09] LABS: ALANINE AMINOTRANSFERASE 44 Units/L (12-78); ALBUMIN 2.5 g/dL (3.4-5.0); ALKALINE PHOSPHATASE 82 Units/L (46-116); ASPARTATE AMINO TRANSFERASE 31 Units/L (15-37); BLOOD UREA NITROGEN 28 mg/dL (7-18); CALCIUM 8.3 mg/dL (8.5-10.1); CARBON DIOXIDE 24.8 mmol/L (21-32); CHLORIDE 104 mmol/L (98-107); COR CA(FOR HYPOALB) 9.5 mg/dL (8.5-10.1); COR NA(FOR HYPERGLY) 141 mmol/L (136-145); CREATININE 1.07 mg/dL (0.70-1.30); SODIUM 137 mmol/L (136-145); TOTAL PROTEIN 6.5 g/dL (6.4-8.2); eGFR NON BLACK RACES > 60 (>60)
--- NOTE | 2019-12-10 06:10 | RAD ---
HISTORYSOB, COVID, PNEUMONIA, HYPOXIASTUDYCHEST, 1 [id number]/2020TECHNIQUEAP view of the chestFINDINGSCardiac silhouette is stably enlarged. Stable bilateral multifocal infiltrates. No pleural effusion or pneumothorax.IMPRESSIONNo significant change.Electronically signed by: Richar Oswald (Dec 10, 2019 06:09:44)
[2019-12-10 06:16] LABS: BASOPHILS % (AUTO) 0.1 % (0.2-1.0); HEMATOCRIT 41.5 % (42.0-54.0); HEMOGLOBIN 13.9 g/dL (13.5-18.0); LYMPHOCYTES # (AUTO) 0.5 X10^3/uL (1.3-2.9); LYMPHOCYTES % (AUTO) 3.8 % (21.0-51.0); MEAN CORPUSCULAR HEMOGLOBIN 31.1 pg (27.0-34.0); MEAN CORPUSCULAR HGB CONC 33.5 g/dL (33.0-35.0); MEAN CORPUSCULAR VOLUME 92.9 fL (80.0-100.0); MEAN PLATELET VOLUME 8.2 fL (7.4-11.0); MONOCYTES # (AUTO) 0.3 x10^3/uL (0.3-0.8); MONOCYTES % (AUTO) 2.5 % (0.0-13.0); NEUTROPHILS # (AUTO) 12.2 x10^3/uL (2.2-4.8); NEUTROPHILS % (AUTO) 93.6 % (42.0-75.0); PLATELET COUNT 251 X10^3/uL (150.0-450.0); RED BLOOD COUNT 4.46 X10^6/uL (4.7-6.0); RED CELL DISTRIBUTION WIDTH 14.1 % (11.6-16.5)
[2019-12-10 07:29] LABS: BAND NEUTROPHILS % 2 % (0-10); PLATELET MORPHOLOGY COMMENT NORMAL (NORMAL)
[2019-12-10] MEDS ORDERED: GLUCOPHAGE ONE ×2 (08:49→19:20)
[2019-12-10] MEDS: REMDESIVIR (INVESTIGATIONAL DRUG GS-5734) 100 MG in NS 250 ML IV 250 ML IV SCH (09:00)
[2019-12-10] MEDS: PULMICORT NEB TX 0.5 MG NEB SCH ×2 (09:00→21:10)
[2019-12-10 10:11] LABS: ABG ALLEN TEST POSS; ABG HCO3 20.9 mmol/L (22-26)
[2019-12-10] MEDS: GLUCOPHAGE PO SCH ×2 (10:24→20:48)
[2019-12-10] MEDS: COREG TAB 6.25 MG PO SCH ×2 (10:25→20:48)
[2019-12-10] MEDS: NEURONTIN TAB 600 MG PO SCH ×2 (10:25→20:47)
[2019-12-10] MEDS: CIPRO IV 200 MG PREMIX* 200 MG/100 ML BAG IV SCH ×2 (10:26→20:48)
[2019-12-10] MEDS: ROBITUSSIN DM PO SCH ×4 (10:26→20:47)
[2019-12-10] MEDS: VSL#3 PO SCH (10:27)
[2019-12-10] MEDS: NS 1/2 1000 ML IV 1,000 ML IV SCH ×2 (10:30→20:46)
[2019-12-10] MEDS: LOVENOX INJ 40 MG SYR SC SCH (13:00)
[2019-12-10] MEDS: PRASUGREL 10 MG PO SCH (15:00)
[2019-12-10] MEDS ORDERED: SINGULAIR TAB 10 MG ONE (19:20)
[2019-12-10] MEDS ORDERED: ANTIVERT TAB 25 MG ONE (19:20)
[2019-12-10] MEDS ORDERED: NS 1/2 1000 ML IV 1,000 ML IV ONE (19:22)
--- NOTE | 2019-12-10 19:46 | DR.UPDATE ---
H&P Update History and Physical Update: History and Physical reviewed and patient examined. Changes noted: Yes with the following: WAS RELEASED FROM THE HOSPITAL ON 12/04/19 FOLLOWING TREATMENT OF COVID-19. HE WAS STABLE UPON DISCHARGE AND WAS SENT HOME ON CIPRO 500MG PO BID, TESSALON PERLES 200MG PO TID, PROBIOTICS DAILY, TUSSIONEX 5ML PO Q12H PRN, DUONEBS, AND A MEDROL DOSEPACK. HE RETURED TO THE ER ON 12/07/19 WITH REPORTS OF INCREASED SHORTNESS OF BREATH, WEAKNESS, AND COUGH. HE WAS ON REMDESIVIR AND ALSO GIVEN CONVALESCENT PLASMA WHILE IN THE HOSPITAL EARLIER IN THE WEEK. HE DOES ADMIT TO COMPLIANCE WITH THE MEDICATIONS THAT HE WAS SENT HOME ON. ON ARRIVAL TO THE ER, VITALS WERE 98.7-102-22-89%ROOM AIR-143/84. LABS WERE OBTAINED ABNORMAL LAB VALUES INCLUDE THE FOLLOWING: WBC 19.4, RBC 4.48, HCT 41.2, SODIUM 130, CHLORIDE 95, BUN 24, GLUCOSE 302, FERRITIN 590, TOTAL BILI 1.10, CRP 81.60, ALBUMIN 2.9. AN ABG WAS OBTAINED AND REVEALED: PH: 7.490, PC02 34.0, P02 73.0, HC03 25.9, 02 SATURATION 96.0, FI02 28.0. BLOOD CULTURES ARE PENDING. A CHEST XRAY WAS OBTAINED AND REVEALED: Persistent multifocal infiltrates, increased in the right lower lobe, compatible with a pneumonitis. HE WAS READMITTED FOR FURTHER EVALUATION AND TREATMENT OF PNEUMONIA DUE TO COVID-19 AND GENERALIZED WEAKNESS. HE WAS STARTED ON NS AT 75 ML/HR, CIPRO 200MG IV Q12H, REMDESIVIR 100MG IV DAILY, SOLU-MEDROL 125MG IV Q8H, PULMICORT NEB TX BID, XOPENEX NEB TX TID, MUCOMYST IN NEB [place], TUSSIONEX 5ML PO Q12H, TESSALON PERLES 200MG PO TID, HUMULIN R SLIDING SCALE, AND HIS HOME MEDICATIONS WERE RESUMED. WE WILL ORDER ANOTHER UNIT OF CONVALESCENT PLASMA TO BE ADMINISTERED WHEN AVAILABLE. OTHERWISE, WE WILL FOLLOW UP WITH AM LABS AND CONTINUE TO MONITOR. Prescription drug monitoring program results: PDMP reviewed and no concerns identified H&P Reviewed: Yes Patient was examined?: Yes
[2019-12-10] MEDS: SNACK - Diabetic Appropriate PO SCH (20:46)
[2019-12-10] MEDS: MILK OF MAGNESIA PO SCH (20:46)
[2019-12-10] MEDS: SINGULAIR TAB 10 MG PO SCH (20:47)
[2019-12-10] MEDS: LIPITOR TAB 40 MG PO SCH (20:47)
[2019-12-10] MEDS: CARDURA PO SCH (20:48)
[2019-12-10] MEDS: COLACE CAP 100 MG PO SCH (20:48)
[2019-12-10] MEDS: ANTIVERT TAB 25 MG PO SCH (20:49)
[2019-12-11] MEDS: NS 1/2 1000 ML IV 1,000 ML IV SCH ×3 (00:40→21:07)
[2019-12-11 05:21] LABS: ABG BASE EXCESS 0.2 mmol/L (-2.0-2.0); ABG HCO3 23.5 mmol/L (22-26); FRACTIONATED INSPIRED OXYGEN 28
[2019-12-11 05:22] LABS: ABG ALLEN TEST POS
[2019-12-11] MEDS: TESSALON PERLES PO SCH ×3 (05:40→21:07)
[2019-12-11] MEDS: SOLU-Medrol 125 MG VIAL IVP SCH ×3 (05:40→21:07)
[2019-12-11] MEDS: HumuLIN R SUBCUT PRN ×4 (05:59→21:10)
[2019-12-11 06:00] LABS: BASOPHILS % (AUTO) 0.1 % (0.2-1.0); HEMOGLOBIN 13.9 g/dL (13.5-18.0); LYMPHOCYTES # (AUTO) 0.6 X10^3/uL (1.3-2.9); LYMPHOCYTES % (AUTO) 6.5 % (21.0-51.0); MEAN CORPUSCULAR HEMOGLOBIN 31.4 pg (27.0-34.0); MEAN CORPUSCULAR HGB CONC 33.9 g/dL (33.0-35.0); MEAN CORPUSCULAR VOLUME 92.7 fL (80.0-100.0); MEAN PLATELET VOLUME 8.1 fL (7.4-11.0); MONOCYTES # (AUTO) 0.3 x10^3/uL (0.3-0.8); MONOCYTES % (AUTO) 3.2 % (0.0-13.0); NEUTROPHILS # (AUTO) 8.8 x10^3/uL (2.2-4.8); NEUTROPHILS % (AUTO) 90.2 % (42.0-75.0); PLATELET COUNT 244 X10^3/uL (150.0-450.0); RED BLOOD COUNT 4.42 X10^6/uL (4.7-6.0); RED CELL DISTRIBUTION WIDTH 14.1 % (11.6-16.5); WHITE BLOOD COUNT 9.7 X10^3/uL (3.6-10.0)
--- NOTE | 2019-12-11 06:01 | RAD ---
HISTORYSOBSTUDYCHEST, 1 [id number] view of the chestFINDINGSCardiac silhouette is stably enlarged. No significant change in scattered bilateral airspace disease. Blunted costophrenic sulci are present. No pneumothorax.IMPRESSIONNo significant change in bilateral multifocal infiltrates. Suspect small pleural effusions.Electronically signed by: Richar Oswald (Dec 11, 2019 06:01:11)
[2019-12-11] MEDS: XOPENEX 1.25 MG/3 ML NEBULE NEB SCH ×3 (06:20→20:40)
[2019-12-11] MEDS: MUCOMYST (RESPIRATORY USE ONLY) NEB SCH ×3 (06:20→20:40)
[2019-12-11 06:27] LABS: ALANINE AMINOTRANSFERASE 46 Units/L (12-78); ALBUMIN 2.4 g/dL (3.4-5.0); ALKALINE PHOSPHATASE 83 Units/L (46-116); ASPARTATE AMINO TRANSFERASE 30 Units/L (15-37); BLOOD UREA NITROGEN 27 mg/dL (7-18); CALCIUM 8.2 mg/dL (8.5-10.1); CARBON DIOXIDE 24.2 mmol/L (21-32); CHLORIDE 104 mmol/L (98-107); COR CA(FOR HYPOALB) 9.5 mg/dL (8.5-10.1); COR NA(FOR HYPERGLY) 142 mmol/L (136-145); CREATININE 1.02 mg/dL (0.70-1.30); SODIUM 139 mmol/L (136-145); TOTAL PROTEIN 6.2 g/dL (6.4-8.2); eGFR NON BLACK RACES > 60 (>60)
[2019-12-11 06:45] LABS: PLATELET MORPHOLOGY COMMENT NORMAL (NORMAL)
[2019-12-11] MEDS ORDERED: GLUCOPHAGE ONE ×2 (07:34→19:08)
[2019-12-11] MEDS: GLUCOPHAGE PO SCH ×2 (08:42→21:09)
[2019-12-11] MEDS: COREG TAB 6.25 MG PO SCH ×2 (08:42→21:07)
[2019-12-11] MEDS: CIPRO IV 200 MG PREMIX* 200 MG/100 ML BAG IV SCH ×2 (08:42→21:10)
[2019-12-11] MEDS: PRASUGREL 10 MG PO SCH (08:43)
[2019-12-11] MEDS: LOVENOX INJ 40 MG SYR SC SCH (08:43)
[2019-12-11] MEDS: NEURONTIN TAB 600 MG PO SCH ×2 (08:43→21:08)
[2019-12-11] MEDS: VSL#3 PO SCH (08:44)
[2019-12-11] MEDS: ROBITUSSIN DM PO SCH ×4 (08:44→21:08)
[2019-12-11] MEDS: REMDESIVIR (INVESTIGATIONAL DRUG GS-5734) 100 MG in NS 250 ML IV 250 ML IV SCH (08:44)
[2019-12-11] MEDS: PULMICORT NEB TX 0.5 MG NEB SCH ×2 (09:40→20:40)
--- NOTE | 2019-12-11 14:06 | PCM.PROG ---
Progress Note - Progress Note for Day of Date of Exam: 12/09/19 - Subjective Subjective: IS BEING TREATED FOR PNEUMONIA DUE TO COVID-19 AND GENERALIZED WEAKNESS. TODAY, HE IS ALERT AND ORIENTED, LYING IN BED ON MORNING ROUNDS. HE CONTINUES WITH COMPLAINTS OF COUGH, SHORTNESS OF BREATH, AND WEAKNESS. HE HAS BEEN UTILIZING OXYGEN VIA NASAL CANNULA AT 2L/MIN. ON EXAMINATION, HEART IS REGULAR IN RATE AND RHYTHM. BILATERAL LUNGS ARE NOTED WITH SCATTERED WHEEZING THROUGHOUT. ABDOMEN IS ROUND, SOFT, AND NON-TENDER WITH HYPERACTIVE BOWEL SOUNDS. HIS VITALS THIS MORNING ARE: 97.6-56-20-94%NC-167/78. LABS WERE OBTAINED. ABNORMAL LAB VALUES INCLUDE THE FOLLOWING: WBC 15.9, RBC 4.16, HCT 41.5, BUN 27, GLUCOSE 245, FERRITIN 630, CRP 49.90, ALBUMIN 2.4. ABG REVEALED: PH 7.420, PC02 36, P02 78, HC03 23.4, 02 SAT 96, FI02 28. BLOOD CULTURES ARE PENDING. A CHEST XRAY WAS OBTAINED AND REVEALED: Stable multifocal airspace disease. HE IS CURRENTLY RECEIVING NS AT 75 ML/HR, CIPRO 200MG IV Q12H, REMDESIVIR 100MG IV DAILY, SOLU-MEDROL 125MG IV Q8H, PULMICORT NEB TX BID, XOPENEX NEB TX TID, MUCOMYST IN NEB [place], TUSSIONEX 5ML PO Q12H, TESSALON PERLES 200MG PO TID, HUMULIN R SLIDING SCALE, AND HIS HOME MEDICATIONS WERE RESUMED. WE WILL CONTINUE WITH CURRENT PLAN OF CARE TODAY. OTHERWISE, WE WILL FOLLOW UP WITH AM LABS AND CONTINUE TO MONITOR. - Past Medical Family Social History Past Med/Fam/Surg Hx: No changes since H&P Allergies: Allergies No Known Drug Allergies Allergy (Verified 12/01/19 09:26) - Vital Signs and I&O's Vital Signs: Temperature 97.6 F Pulse Rate [Right Radial] 69 Pulse Rate 58 Respiratory Rate 20 Blood Pressure [Right Arm] 163/76 Blood Pressure 132/68 O2 Sat by Pulse Oximetry 94 Intake and Output: Intake & Output 12/09/19 12/10/19 12/11/19 12/12/19 11:59 11:59 11:59 11:59 Intake Total 4651 / 4651 4210 / 4210 2972 / 2972 Balance 4651 / 4651 4210 / 4210 2972 / 2972 - Physical Exam Oriented: Normal Eyes: Normal Ear: Normal Nose: Normal Throat: Normal Respiratory: Diminished, Wheezes Cardiovascular: Normal : Normal Auscultation: Bowel Sounds: Normal Palpation: Normal Tenderness: Normal Skin: Normal Musculoskeletal: Normal Psychiatric: Normal Mood Description: Calm Affect: Normal Speech Pattern: Clear, Appropriate - Laboratory and Diagnostics Result Diagrams: 12/11/19 05:34 12/11/19 05:34 Labs: 12/07/19 11:50 Blood Blood Culture - Preliminary 12/07/19 09:23 Blood Blood Culture - Preliminary Laboratory WBC 9.7 X10^3/uL (3.6-10.0) 12/11/19 05:34 RBC 4.42 X10^6/uL (4.7-6.0) L 12/11/19 05:34 Hgb 13.9 g/dL (13.5-18.0) 12/11/19 05:34 Hct 41.0 % (42.0-54.0) L 12/11/19 05:34 MCV 92.7 fL (80.0-100.0) 12/11/19 05:34 MCH 31.4 pg (27.0-34.0) 12/11/19 05:34 MCHC 33.9 g/dL (33.0-35.0) 12/11/19 05:34 RDW 14.1 % (11.6-16.5) 12/11/19 05:34 Plt Count 244 X10^3/uL (150.0-450.0) 12/11/19 05:34 Plt Count Comment Adequate (ADEQUATE) 12/11/19 05:34 MPV 8.1 fL (7.4-11.0) 12/11/19 05:34 Neut % (Auto) 90.2 % (42.0-75.0) H 12/11/19 05:34 Lymph % (Auto) 6.5 % (21.0-51.0) L 12/11/19 05:34 [place] % (Auto) 3.2 % (0.0-13.0) 12/11/19 05:34 Eos % (Auto) 0.0 % (0.9-2.9) L 12/11/19 05:34 Baso % (Auto) 0.1 % (0.2-1.0) L 12/11/19 05:34 Neut # (Auto) 8.8 x10^3/uL (2.2-4.8) H 12/11/19 05:34 Lymph # (Auto) 0.6 X10^3/uL (1.3-2.9) L 12/11/19 05:34 [place] # (Auto) 0.3 x10^3/uL (0.3-0.8) 12/11/19 05:34 Eos # (Auto) 0.0 x10^3/uL (0.0-0.2) 12/11/19 05:34 Baso # (Auto) 0.0 X10^3/uL (0.0-0.1) 12/11/19 05:34 Absolute Nucleated RBC 0.0 /100WBC 12/11/19 05:34 Total Counted 100 12/11/19 05:34 Neutrophils % (Manual) 91 % (39-76) H 12/11/19 05:34 Band Neutrophils % 2 % (0-10) 12/10/19 05:34 Lymphocytes % (Manual) 6 % (13-43) L 12/11/19 05:34 Monocytes % (Manual) 3 % (4-9) L 12/11/19 05:34 Plt Morphology Comment Normal (NORMAL) 12/11/19 05:34 RBC Morphology Normal (NORMAL) 12/11/19 05:34 Sample Site Rr 12/11/19 11:16 ABG pH 7.460 (7.35-7.45) H 12/11/19 11:16 ABG pCO2 33.0 mmHg (35.0-45.0) L 12/11/19 11:16 ABG pO2 59.0 mmHg (80.0-100.0) L 12/11/19 11:16 ABG HCO3 23.5 mmol/L (22-26) 12/11/19 11:16 ABG O2 Saturation 92.0 % (90-100) 12/11/19 11:16 ABG Base Excess 0.2 mmol/L (-2.0-2.0) 12/11/19 11:16 Bao Test Pos 12/11/19 11:16 A-a Gradient 99.0 mmHg 12/11/19 11:16 FiO2 28 12/11/19 11:16 Blood Gas Comments Mary Jane well sw 12/11/19 11:16 Sodium 139 mmol/L (136-145) 12/11/19 05:34 Corrected Sodium 142 mmol/L (136-145) 12/11/19 05:34 Potassium 4.7 mmol/L (3.5-5.1) 12/11/19 05:34 Chloride 104 mmol/L (98-107) 12/11/19 05:34 Carbon Dioxide 24.2 mmol/L (21-32) 12/11/19 05:34 BUN 27 mg/dL (7-18) H 12/11/19 05:34 Creatinine 1.02 mg/dL (0.70-1.30) 12/11/19 05:34 Est GFR (MDRD) Af Amer > 60 (>60) 12/11/19 05:34 Est GFR (MDRD) Non-Af > 60 (>60) 12/11/19 05:34 Glucose 235 mg/dL (65-99) H 12/11/19 05:34 POC Glucose (mg/dL) 293 mg/dL (65-99) H 12/11/19 11:47 Calcium 8.2 mg/dL (8.5-10.1) L 12/11/19 05:34 Corrected Calcium 9.5 mg/dL (8.5-10.1) 12/11/19 05:34 Ferritin 552 ng/mL (26-388) H 12/11/19 05:34 Total Bilirubin 0.60 mg/dL (0.2-1.0) 12/11/19 05:34 AST 30 Units/L (15-37) 12/11/19 05:34 ALT 46 Units/L (12-78) 12/11/19 05:34 Alkaline Phosphatase 83 Units/L (46-116) 12/11/19 05:34 Creatine Kinase 48 Units/L (39-308) 12/07/19 09:23 CK-MB (CK-2) < 1.0 ng/mL (0-4.0) 12/07/19 09:23 CK/CKMB % Calc 2.1 % (<4) 12/07/19 09:23 Troponin I 0.04 ng/mL (0-1.5) 12/07/19 09:23 C-Reactive Protein 17.10 mg/L (0-3.0) H 12/11/19 05:34 Total Protein 6.2 g/dL (6.4-8.2) L 12/11/19 05:34 Albumin 2.4 g/dL (3.4-5.0) L 12/11/19 05:34 Globulin 3.8 g/dL (2.5-4.5) 12/11/19 05:34 Albumin/Globulin Ratio 0.6 Ratio (1.1-2.1) L 12/11/19 05:34 Blood Type O NEGATIVE 12/07/19 11:50 Antibody Screen Cancelled 12/07/19 11:50 - Plan (1) Pneumonia due to 2019 novel coronavirus Status: Acute Plan: NS AT 75 ML/HR, CIPRO 200MG IV Q12H, REMDESIVIR 100MG IV DAILY, SOLU- MEDROL 125MG IV Q8H, PULMICORT NEB TX BID, XOPENEX NEB TX TID, MUCOMYST IN NEB [place], TUSSIONEX 5ML PO Q12H, TESSALON PERLES 200MG PO TID, HUMULIN R SLIDING SCAL E, AND HIS HOME MEDICATIONS WERE RESUMED (2) Generalized weakness Status: Acute (3) HTN (hypertension) Status: Chronic Qualifiers: Hypertension type: essential hypertension (4) Diabetes Status: Chronic Qualifiers: Diabetes mellitus type: type 2 Diabetes mellitus anchorman insulin use: with custodial use Diabetes mellitus complication status: without complication Qualified Code(s): E11.9 - Type 2 diabetes mellitus without complications; 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
--- NOTE | 2019-12-11 14:09 | PCM.PROG ---
Progress Note - Progress Note for Day of Date of Exam: 12/10/19 - Subjective Subjective: IS BEING TREATED FOR PNEUMONIA DUE TO COVID-19 AND GENERALIZED WEAKNESS. TODAY, HE IS ALERT AND ORIENTED, LYING IN BED ON MORNING ROUNDS. HE CONTINUES WITH COMPLAINTS OF COUGH, SHORTNESS OF BREATH, AND WEAKNESS. HE ALSO REPORTS DIZZINESS THIS MORNING. HE HAS BEEN UTILIZING OXYGEN VIA NASAL CANNULA AT 2L/MIN. ON EXAMINATION, HEART IS REGULAR IN RATE AND RHYTHM. BILATERAL LUNGS ARE NOTED WITH SCATTERED WHEEZING THROUGHOUT. ABDOMEN IS ROUND, SOFT, AND NON-TENDER WITH HYPERACTIVE BOWEL SOUNDS. HIS VITALS THIS MORNING ARE: 97.6-76-20-93%RA-134/64. LABS WERE OBTAINED. ABNORMAL LAB VALUES INCLUDE THE FOLLOWING: WBC 13.0, RBC 4.46, HCT 41.5, BUN 28, GLUCOSE 260, CALCIUM 8.3, FERRITIN 629, CRP 27.70, ALBUMIN 2.5. ABG REVEALED: PH 7.410, PC02 33, P02 85, HC03 20.9, 02 SAT 97, FI02 28. BLOOD CULTURES ARE PENDING. A CHEST XRAY WAS OBTAINED AND REVEALED: Cardiac silhouette is stably enlarged. Stable bilateral multifocal infiltrates. No pleural effusion or pneumothorax. HE IS CURRENTLY RECEIVING NS AT 75 ML/HR, CIPRO 200MG IV Q12H, REMDESIVIR 100MG IV DAILY, LOVENOX 40MG SC DAILY, SOLU-MEDROL 125MG IV Q8H, PULMICORT NEB TX BID, XOPENEX NEB TX TID, MUCOMYST IN NEB [place], TUSSIONEX 5ML PO Q12H, TESSALON PERLES 200MG PO TID, HUMULIN R SLIDING SCALE, AND HIS HOME MEDICATIONS WERE RESUMED. WE WILL CONTINUE WITH CURRENT PLAN OF CARE TODAY AND ADD MECLIZINE 25MG PO HS AND SINGULAIR 10MG PO HS. OTHERWISE, WE WILL FOLLOW UP WITH AM LABS AND CONTINUE TO MONITOR. - Past Medical Family Social History Past Med/Fam/Surg Hx: No changes since H&P Allergies: Allergies No Known Drug Allergies Allergy (Verified 12/01/19 09:26) - Vital Signs and I&O's Vital Signs: Temperature 97.6 F Pulse Rate [Right Radial] 69 Pulse Rate 58 Respiratory Rate 20 Blood Pressure [Right Arm] 163/76 Blood Pressure 132/68 O2 Sat by Pulse Oximetry 94 Intake and Output: Intake & Output 12/09/19 12/10/19 12/11/19 12/12/19 11:59 11:59 11:59 11:59 Intake Total 4651 / 4651 4210 / 4210 2972 / 2972 Balance 4651 / 4651 4210 / 4210 2972 / 2972 - Physical Exam Oriented: Normal Eyes: Normal Ear: Normal Nose: Normal Throat: Normal Respiratory: Diminished, Wheezes Cardiovascular: Normal : Normal Auscultation: Bowel Sounds: Normal Tenderness: Normal Skin: Normal Musculoskeletal: Normal Psychiatric: Normal Mood Description: Calm Affect: Normal Speech Pattern: Clear, Appropriate - Laboratory and Diagnostics Result Diagrams: 12/11/19 05:34 12/11/19 05:34 Labs: 12/07/19 11:50 Blood Blood Culture - Preliminary 12/07/19 09:23 Blood Blood Culture - Preliminary Laboratory WBC 9.7 X10^3/uL (3.6-10.0) 12/11/19 05:34 RBC 4.42 X10^6/uL (4.7-6.0) L 12/11/19 05:34 Hgb 13.9 g/dL (13.5-18.0) 12/11/19 05:34 Hct 41.0 % (42.0-54.0) L 12/11/19 05:34 MCV 92.7 fL (80.0-100.0) 12/11/19 05:34 MCH 31.4 pg (27.0-34.0) 12/11/19 05:34 MCHC 33.9 g/dL (33.0-35.0) 12/11/19 05:34 RDW 14.1 % (11.6-16.5) 12/11/19 05:34 Plt Count 244 X10^3/uL (150.0-450.0) 12/11/19 05:34 Plt Count Comment Adequate (ADEQUATE) 12/11/19 05:34 MPV 8.1 fL (7.4-11.0) 12/11/19 05:34 Neut % (Auto) 90.2 % (42.0-75.0) H 12/11/19 05:34 Lymph % (Auto) 6.5 % (21.0-51.0) L 12/11/19 05:34 [place] % (Auto) 3.2 % (0.0-13.0) 12/11/19 05:34 Eos % (Auto) 0.0 % (0.9-2.9) L 12/11/19 05:34 Baso % (Auto) 0.1 % (0.2-1.0) L 12/11/19 05:34 Neut # (Auto) 8.8 x10^3/uL (2.2-4.8) H 12/11/19 05:34 Lymph # (Auto) 0.6 X10^3/uL (1.3-2.9) L 12/11/19 05:34 [place] # (Auto) 0.3 x10^3/uL (0.3-0.8) 12/11/19 05:34 Eos # (Auto) 0.0 x10^3/uL (0.0-0.2) 12/11/19 05:34 Baso # (Auto) 0.0 X10^3/uL (0.0-0.1) 12/11/19 05:34 Absolute Nucleated RBC 0.0 /100WBC 12/11/19 05:34 Total Counted 100 12/11/19 05:34 Neutrophils % (Manual) 91 % (39-76) H 12/11/19 05:34 Band Neutrophils % 2 % (0-10) 12/10/19 05:34 Lymphocytes % (Manual) 6 % (13-43) L 12/11/19 05:34 Monocytes % (Manual) 3 % (4-9) L 12/11/19 05:34 Plt Morphology Comment Normal (NORMAL) 12/11/19 05:34 RBC Morphology Normal (NORMAL) 12/11/19 05:34 Sample Site Rr 12/11/19 11:16 ABG pH 7.460 (7.35-7.45) H 12/11/19 11:16 ABG pCO2 33.0 mmHg (35.0-45.0) L 12/11/19 11:16 ABG pO2 59.0 mmHg (80.0-100.0) L 12/11/19 11:16 ABG HCO3 23.5 mmol/L (22-26) 12/11/19 11:16 ABG O2 Saturation 92.0 % (90-100) 12/11/19 11:16 ABG Base Excess 0.2 mmol/L (-2.0-2.0) 12/11/19 11:16 Bao Test Pos 12/11/19 11:16 A-a Gradient 99.0 mmHg 12/11/19 11:16 FiO2 28 12/11/19 11:16 Blood Gas Comments Mary Jane well sw 12/11/19 11:16 Sodium 139 mmol/L (136-145) 12/11/19 05:34 Corrected Sodium 142 mmol/L (136-145) 12/11/19 05:34 Potassium 4.7 mmol/L (3.5-5.1) 12/11/19 05:34 Chloride 104 mmol/L (98-107) 12/11/19 05:34 Carbon Dioxide 24.2 mmol/L (21-32) 12/11/19 05:34 BUN 27 mg/dL (7-18) H 12/11/19 05:34 Creatinine 1.02 mg/dL (0.70-1.30) 12/11/19 05:34 Est GFR (MDRD) Af Amer > 60 (>60) 12/11/19 05:34 Est GFR (MDRD) Non-Af > 60 (>60) 12/11/19 05:34 Glucose 235 mg/dL (65-99) H 12/11/19 05:34 POC Glucose (mg/dL) 293 mg/dL (65-99) H 12/11/19 11:47 Calcium 8.2 mg/dL (8.5-10.1) L 12/11/19 05:34 Corrected Calcium 9.5 mg/dL (8.5-10.1) 12/11/19 05:34 Ferritin 552 ng/mL (26-388) H 12/11/19 05:34 Total Bilirubin 0.60 mg/dL (0.2-1.0) 12/11/19 05:34 AST 30 Units/L (15-37) 12/11/19 05:34 ALT 46 Units/L (12-78) 12/11/19 05:34 Alkaline Phosphatase 83 Units/L (46-116) 12/11/19 05:34 Creatine Kinase 48 Units/L (39-308) 12/07/19 09:23 CK-MB (CK-2) < 1.0 ng/mL (0-4.0) 12/07/19 09:23 CK/CKMB % Calc 2.1 % (<4) 12/07/19 09:23 Troponin I 0.04 ng/mL (0-1.5) 12/07/19 09:23 C-Reactive Protein 17.10 mg/L (0-3.0) H 12/11/19 05:34 Total Protein 6.2 g/dL (6.4-8.2) L 12/11/19 05:34 Albumin 2.4 g/dL (3.4-5.0) L 12/11/19 05:34 Globulin 3.8 g/dL (2.5-4.5) 12/11/19 05:34 Albumin/Globulin Ratio 0.6 Ratio (1.1-2.1) L 12/11/19 05:34 Blood Type O NEGATIVE 12/07/19 11:50 Antibody Screen Cancelled 12/07/19 11:50 - Plan (1) Pneumonia due to 2019 novel coronavirus Status: Acute Plan: NS AT 75 ML/HR, CIPRO 200MG IV Q12H, REMDESIVIR 100MG IV DAILY, SOLU- MEDROL 125MG IV Q8H, PULMICORT NEB TX BID, XOPENEX NEB TX TID, MUCOMYST IN NEB [place], TUSSIONEX 5ML PO Q12H, TESSALON PERLES 200MG PO TID, HUMULIN R SLIDING SCALE, AND HIS HOME MEDICATIONS WERE RESUMED (2) Generalized weakness Status: Acute (3) HTN (hypertension) Status: Chronic Qualifiers: Hypertension type: essential hypertension (4) Diabetes Status: Chronic Qualifiers: Diabetes mellitus type: type 2 Diabetes mellitus long-term insulin use: with long-term use Diabetes mellitus complication status: without complication Qualified Code(s): E11.9 - Type 2 diabetes mellitus without complications; Z79.4 - manager intermediate (current) use of insulin
[2019-12-11] MEDS ORDERED: NS 1/2 1000 ML IV 1,000 ML IV ONE (19:08)
[2019-12-11] MEDS: ANTIVERT TAB 25 MG PO SCH (21:06)
[2019-12-11] MEDS: SNACK - Diabetic Appropriate PO SCH (21:06)
[2019-12-11] MEDS: SINGULAIR TAB 10 MG PO SCH (21:08)
[2019-12-11] MEDS: LIPITOR TAB 40 MG PO SCH (21:09)
[2019-12-11] MEDS: COLACE CAP 100 MG PO SCH (21:09)
[2019-12-11] MEDS: MILK OF MAGNESIA PO SCH (21:09)
[2019-12-11] MEDS: CARDURA PO SCH (21:10)
[2019-12-12] MEDS ORDERED: NS 1/2 1000 ML IV 1,000 ML IV ONE (04:50)
[2019-12-12] MEDS: XOPENEX 1.25 MG/3 ML NEBULE NEB SCH (05:15)
[2019-12-12] MEDS: MUCOMYST (RESPIRATORY USE ONLY) NEB SCH (05:15)
[2019-12-12] MEDS: NS 1/2 1000 ML IV 1,000 ML IV SCH (05:30)
[2019-12-12] MEDS: TESSALON PERLES PO SCH (05:30)
[2019-12-12] MEDS: SOLU-Medrol 125 MG VIAL IVP SCH (05:30)
[2019-12-12] MEDS: HumuLIN R SUBCUT PRN ×2 (05:59→12:00)
[2019-12-12 06:07] LABS: ALANINE AMINOTRANSFERASE 45 Units/L (12-78); ALBUMIN 2.2 g/dL (3.4-5.0); ALKALINE PHOSPHATASE 84 Units/L (46-116); ASPARTATE AMINO TRANSFERASE 30 Units/L (15-37); BLOOD UREA NITROGEN 27 mg/dL (7-18); CALCIUM 7.8 mg/dL (8.5-10.1); CARBON DIOXIDE 23.6 mmol/L (21-32); CHLORIDE 105 mmol/L (98-107); COR CA(FOR HYPOALB) 9.2 mg/dL (8.5-10.1); COR NA(FOR HYPERGLY) 141 mmol/L (136-145); CREATININE 0.99 mg/dL (0.70-1.30); SODIUM 138 mmol/L (136-145); TOTAL PROTEIN 5.7 g/dL (6.4-8.2); eGFR NON BLACK RACES > 60 (>60)
--- NOTE | 2019-12-12 06:08 | RAD ---
HISTORYSOBSTUDYCHEST, 1 [id number] trachea is midline. The cardiac silhouette is mildly enlarged and stable.. Low lung volume with no significant change in patchy bilateral pulmonary infiltrates/opacities.. The bony thorax is unremarkable.IMPRESSIONNo appreciable change. Low lung volume.Electronically signed by: Graciela Arroyo (Dec 12, 2019 06:07:59)
[2019-12-12 06:13] LABS: BASOPHILS % (AUTO) 0.3 % (0.2-1.0); HEMATOCRIT 39.5 % (42.0-54.0); HEMOGLOBIN 13.4 g/dL (13.5-18.0); LYMPHOCYTES # (AUTO) 0.5 X10^3/uL (1.3-2.9); LYMPHOCYTES % (AUTO) 4.9 % (21.0-51.0); MEAN CORPUSCULAR HEMOGLOBIN 31.5 pg (27.0-34.0); MEAN CORPUSCULAR VOLUME 92.6 fL (80.0-100.0); MEAN PLATELET VOLUME 7.9 fL (7.4-11.0); MONOCYTES # (AUTO) 0.3 x10^3/uL (0.3-0.8); MONOCYTES % (AUTO) 2.9 % (0.0-13.0); NEUTROPHILS # (AUTO) 8.7 x10^3/uL (2.2-4.8); NEUTROPHILS % (AUTO) 91.9 % (42.0-75.0); PLATELET COUNT 209 X10^3/uL (150.0-450.0); RED BLOOD COUNT 4.27 X10^6/uL (4.7-6.0); RED CELL DISTRIBUTION WIDTH 14.1 % (11.6-16.5); WHITE BLOOD COUNT 9.4 X10^3/uL (3.6-10.0)
[2019-12-12 07:24] LABS: PLATELET MORPHOLOGY COMMENT NORMAL (NORMAL)
[2019-12-12 08:06] LABS: ABG BASE EXCESS 0.8 mmol/L (-2.0-2.0)
[2019-12-12 08:07] LABS: ABG ALLEN TEST POS
[2019-12-12] MEDS ORDERED: GLUCOPHAGE ONE (08:16)
[2019-12-12] MEDS: CIPRO IV 200 MG PREMIX* 200 MG/100 ML BAG IV SCH (09:12)
[2019-12-12] MEDS: COREG TAB 6.25 MG PO SCH (09:14)
[2019-12-12] MEDS: GLUCOPHAGE PO SCH (09:14)
[2019-12-12] MEDS: LOVENOX INJ 40 MG SYR SC SCH (09:15)
[2019-12-12] MEDS: NEURONTIN TAB 600 MG PO SCH (09:16)
[2019-12-12] MEDS: PRASUGREL 10 MG PO SCH (09:17)
[2019-12-12] MEDS: VSL#3 PO SCH (09:18)
[2019-12-12] MEDS: ROBITUSSIN DM PO SCH ×2 (09:18→10:14)
[2019-12-12] MEDS: PULMICORT NEB TX 0.5 MG NEB SCH (10:00)
--- NOTE | 2019-12-12 12:04 | PCM.PROG ---
Progress Note - Progress Note for Day of Date of Exam: 12/11/19 - Subjective Subjective: IS BEING TREATED FOR PNEUMONIA DUE TO COVID-19 AND GENERALIZED WEAKNESS. TODAY, HE IS ALERT AND ORIENTED, LYING IN BED ON MORNING ROUNDS. HE CONTINUES WITH COMPLAINTS OF COUGH, SHORTNESS OF BREATH, AND WEAKNESS, BUT REPORTS SLIGHT IMPROVEMENT IN SYMPTOMS. HE HAS BEEN UTILIZING OXYGEN VIA NASAL CANNULA AT 2L/MIN. ON EXAMINATION, HEART IS REGULAR IN RATE AND RHYTHM. BILATERAL LUNGS ARE NOTED WITH SCATTERED WHEEZING THROUGHOUT. ABDOMEN IS ROUND, SOFT, AND NON-TENDER WITH HYPERACTIVE BOWEL SOUNDS. HIS VITALS THIS MORNING ARE: 97.9-58-20-94%RA-150/77. LABS WERE OBTAINED. ABNORMAL LAB VALUES INCLUDE THE FOLLOWING: RBC 4.42, HCT 41, BUN 27, GLUCOSE 235, CALCIUM 8.2, FERRITIN 552, CRP 17.10, TOTAL PROTEIN 6.2, ALBUMIN 2.4. ABG REVEALED: PH 7.460, PC02 33, P02 59, HC03 23.5, 02 SAT 92, FI02 28. A CHEST XRAY WAS OBTAINED AND REVEALED: No significant change in bilateral multifocal infiltrates. Suspect small pleural effusions. HE IS CURRENTLY RECEIVING NS AT 75 ML/HR, CIPRO 200MG IV Q12H, REMDESIVIR 100MG IV DAILY, LOVENOX 40MG SC DAILY, SOLU-MEDROL 125MG IV Q8H, PULMICORT NEB TX BID, XOPENEX NEB TX TID, MUCOMYST IN NEB [place], TUSSIONEX 5ML PO Q12H, TESSALON PERLES 200MG PO TID, HUMULIN R SLIDING SCALE, MECLIZINE 25MG PO HS, SINGULAIR 10MG PO HS, AND HIS HOME MEDICATIONS WERE RESUMED. WE WILL CONTINUE WITH CURRENT PLAN OF CARE TODAY. OTHERWISE, WE WILL FOLLOW UP WITH AM LABS AND CONTINUE TO MONITOR. - Past Medical Family Social History Past Med/Fam/Surg Hx: No changes since H&P Allergies: Allergies No Known Drug Allergies Allergy (Verified 12/01/19 09:26) - Vital Signs and I&O's Vital Signs: Temperature 97.2 F Pulse Rate [Right Radial] 76 Pulse Rate 66 Respiratory Rate 20 Blood Pressure [Right Arm] 136/65 Blood Pressure 132/68 O2 Sat by Pulse Oximetry 95 Intake and Output: Intake & Output 08/17/20 12/11/19 12/12/19 12/13/19 11:59 11:59 11:59 11:59 Intake Total 4210 / 4210 2972 / 2972 2420 / 2420 Balance 4210 / 4210 2972 / 2972 2420 / 2420 - Physical Exam Oriented: Normal Eyes: Normal Ear: Normal Nose: Normal Throat: Normal Respiratory: Diminished, Wheezes Cardiovascular: Normal : Normal Auscultation: Bowel Sounds: Normal Tenderness: Normal Skin: Normal Musculoskeletal: Normal Psychiatric: Normal Mood Description: Calm Affect: Normal Speech Pattern: Clear, Appropriate - Laboratory and Diagnostics Result Diagrams: 12/12/19 05:27 12/12/19 05:27 Labs: 12/07/19 11:50 Blood Blood Culture - Preliminary 12/07/19 09:23 Blood Blood Culture - Preliminary Laboratory WBC 9.4 X10^3/uL (3.6-10.0) 12/12/19 05:27 RBC 4.27 X10^6/uL (4.7-6.0) L 12/12/19 05:27 Hgb 13.4 g/dL (13.5-18.0) L 12/12/19 05:27 Hct 39.5 % (42.0-54.0) L 12/12/19 05:27 MCV 92.6 fL (80.0-100.0) 12/12/19 05:27 MCH 31.5 pg (27.0-34.0) 12/12/19 05:27 MCHC 34.0 g/dL (33.0-35.0) 12/12/19 05:27 RDW 14.1 % (11.6-16.5) 12/12/19 05:27 Plt Count 209 X10^3/uL (150.0-450.0) 12/12/19 05:27 Plt Count Comment Adequate (ADEQUATE) 12/12/19 05:27 MPV 7.9 fL (7.4-11.0) 12/12/19 05:27 Neut % (Auto) 91.9 % (42.0-75.0) H 12/12/19 05:27 Lymph % (Auto) 4.9 % (21.0-51.0) L 12/12/19 05:27 [place] % (Auto) 2.9 % (0.0-13.0) 12/12/19 05:27 Eos % (Auto) 0.0 % (0.9-2.9) L 12/12/19 05:27 Baso % (Auto) 0.3 % (0.2-1.0) 12/12/19 05:27 Neut # (Auto) 8.7 x10^3/uL (2.2-4.8) H 12/12/19 05:27 Lymph # (Auto) 0.5 X10^3/uL (1.3-2.9) L 12/12/19 05:27 [place] # (Auto) 0.3 x10^3/uL (0.3-0.8) 12/12/19 05:27 Eos # (Auto) 0.0 x10^3/uL (0.0-0.2) 12/12/19 05:27 Baso # (Auto) 0.0 X10^3/uL (0.0-0.1) 12/12/19 05:27 Absolute Nucleated RBC 0.0 /100WBC 12/12/19 05:27 Total Counted 100 12/12/19 05:27 Neutrophils % (Manual) 90 % (39-76) H 12/12/19 05:27 Band Neutrophils % 2 % (0-10) 12/10/19 05:34 Lymphocytes % (Manual) 6 % (13-43) L 12/12/19 05:27 Monocytes % (Manual) 4 % (4-9) 12/12/19 05:27 Plt Morphology Comment Normal (NORMAL) 12/12/19 05:27 RBC Morphology Normal (NORMAL) 12/12/19 05:27 Sample Site Lrad 12/12/19 05:19 ABG pH 7.470 (7.35-7.45) H 12/12/19 05:19 ABG pCO2 33.0 mmHg (35.0-45.0) L 12/12/19 05:19 ABG pO2 65.0 mmHg (80.0-100.0) L 12/12/19 05:19 ABG HCO3 24.0 mmol/L (22-26) 12/12/19 05:19 ABG O2 Saturation 94.0 % (90-100) 12/12/19 05:19 ABG Base Excess 0.8 mmol/L (-2.0-2.0) 12/12/19 05:19 Bao Test Pos 12/12/19 05:19 A-a Gradient 43.0 mmHg 12/12/19 05:19 FiO2 21.0 12/12/19 05:19 Blood Gas Comments Mary Jane well 12/12/19 05:19 Sodium 138 mmol/L (136-145) 12/12/19 05:27 Corrected Sodium 141 mmol/L (136-145) 12/12/19 05:27 Potassium 4.3 mmol/L (3.5-5.1) 12/12/19 05:27 Chloride 105 mmol/L (98-107) 12/12/19 05:27 Carbon Dioxide 23.6 mmol/L (21-32) 12/12/19 05:27 BUN 27 mg/dL (7-18) H 12/12/19 05:27 Creatinine 0.99 mg/dL (0.70-1.30) 12/12/19 05:27 Est GFR (MDRD) Af Amer > 60 (>60) 12/12/19 05:27 Est GFR (MDRD) Non-Af > 60 (>60) 12/12/19 05:27 Glucose 219 mg/dL (65-99) H 12/12/19 05:27 POC Glucose (mg/dL) 329 mg/dL (65-99) H 12/12/19 11:44 Calcium 7.8 mg/dL (8.5-10.1) L 12/12/19 05:27 Corrected Calcium 9.2 mg/dL (8.5-10.1) 12/12/19 05:27 Ferritin 503 ng/mL (26-388) H 12/12/19 05:27 Total Bilirubin 0.60 mg/dL (0.2-1.0) 12/12/19 05:27 AST 30 Units/L (15-37) 12/12/19 05:27 ALT 45 Units/L (12-78) 12/12/19 05:27 Alkaline Phosphatase 84 Units/L (46-116) 12/12/19 05:27 Creatine Kinase 48 Units/L (39-308) 12/07/19 09:23 CK-MB (CK-2) < 1.0 ng/mL (0-4.0) 12/07/19 09:23 CK/CKMB % Calc 2.1 % (<4) 12/07/19 09:23 Troponin I 0.04 ng/mL (0-1.5) 12/07/19 09:23 C-Reactive Protein 10.80 mg/L (0-3.0) H 12/12/19 05:27 Total Protein 5.7 g/dL (6.4-8.2) L 12/12/19 05:27 Albumin 2.2 g/dL (3.4-5.0) L 12/12/19 05:27 Globulin 3.5 g/dL (2.5-4.5) 12/12/19 05:27 Albumin/Globulin Ratio 0.6 Ratio (1.1-2.1) L 12/12/19 05:27 Blood Type O NEGATIVE 12/07/19 11:50 Antibody Screen Cancelled 12/07/19 11:50 - Plan (1) Pneumonia due to 2019 novel coronavirus Status: Acute Plan: NS AT 75 ML/HR, CIPRO 200MG IV Q12H, REMDESIVIR 100MG IV DAILY, SOLU- MEDROL 125MG IV Q8H, PULMICORT NEB TX BID, XOPENEX NEB TX TID, MUCOMYST IN NEB [place], TUSSIONEX 5ML PO Q12H, TESSALON PERLES 200MG PO TID, HUMULIN R SLIDING SCALE, AND HIS HOME MEDICATIONS WERE RESUMED (2) Generalized weakness Status: Acute (3) HTN (hypertension) Status: Chronic Qualifiers: Hypertension type: essential hypertension (4) Diabetes Status: Chronic Qualifiers: Diabetes mellitus type: type 2 Diabetes mellitus fdc insulin use: with emblem fuser tender use Diabetes mellitus complication status: without complication Qualified Code(s): E11.9 - Type 2 diabetes mellitus without complications; 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
[2019-12-12 13:00] VITALS: BP 174/81
--- NOTE | 2020-01-04 04:56 | DR.DIZZY ---
HPI Time seen Time Seen by Provider: 12/07/19 09:08 PCP Primary Care Physician: Steven Complaint Chief Complaint:: PT C/O WEAKNESS, NOT EATING, HIGH SUGAR, AND UNABLE TO GET HIS STRENGTH BACK. PT STATES HE WAS COVID POSITIVE AND WAS ADMITTED IN THE HOSPITAL AND DISCHARGED THIS PAST TUESDAY. PT'S STATES HE WAS ADMINISTERED THE PLASMA ALSO A TREATMENT WHILE HE WAS ADMITTED. COVID-19 Coronavirus risk:travel/contact w/high risk person: Yes Has patient experienced Coronavirus symptoms: Yes Coronavirus symptoms experienced: Shortness of Breath Source History Provided: Family Member Mode of Arrival Mode of Arrival: Wheelchair Timing Onset of Chief Complaint: 12/07/19 Context Stroke Symptoms: None PMH PMH Past Medical History: Yes Past Medical History: Diabetes, Dyslipidemia and Hypertension Past Surgical History: Yes Surgical History: Angioplasty/Stents and Ortho Surgery Family History History of Family Medical Conditions: Yes Family Medical History: Diabetes Mellitus and Hypertension Social History Does patient currently use any type of tobacco product: No Have you used tobacco products in the last 12 months: No Type of Tobacco Use: None Does any household member use tobacco: No Alcohol Use: None Do you use any recreational Drugs:: No Lives With: Alone Lives Where: Home Travel Risk Coronavirus risk:travel/contact w/high risk person: Yes Has patient experienced Coronavirus symptoms: Yes Coronavirus symptoms experienced: Shortness of Breath Infectious screening In the last 2 months have you had wt loss of >10#?: NO Have you had fever, night sweats or hemotysis?: No Have you traveled outside the country in the last 6 months?: No Isolation: Standard ROS Review of Systems Constitutional: Weakness Eyes: No Symptoms Reported ENTM: No Symptoms Reported Respiratoy: Short of Breath Cardiovascular: No Symptoms Reported Gastrointestinal/Abdominal: No Symptoms Reported Genitourinary: No Symptoms Reported Neurological: Weakness Musculoskeletal: No Symptoms Reported Integumentary: No Symptoms Reported Hematologic/Lymphatic: No Symptoms Reported Endocrine: No Symptoms Reported Psychiatric: No Symptoms Reported All Other Systems: Reviewed and Negative PE Vital Signs Vitals: Temperature 98.7 F Pulse Rate [Right Radial] 99 Pulse Rate 98 Respiratory Rate 22 Blood Pressure [Right Arm] 130/67 Blood Pressure 140/72 O2 Sat by Pulse Oximetry 94 General Limitations: No Limitations General Appearance: Alert and In No Apparent Distress Head Head Exam: Normal Inspection, Atraumatic and Normocephalic Eyes Eye exam: Normal Appearance and EOMI Pupils: Regular, Round: Bilateral ENT ENT Exam: Normal Exam and Normal Oropharynx Neck Neck Exam: Normal Inspection, Full ROM and Trachea Midline Chest Chest Inspection: Normal Inspection Respiratory Respiratory Exam: Normal Lung Sounds Bilat Respiratory Exam: Bilateral: Clear to Auscultation Cardiovascular Cardiovascular Exam: Regular Rate Abdominal Exam Abdominal Exam: Normal Inspection Rectal Rectal Exam: Deferred Extremeties Extremities Exam: Normal Inspection and Full ROM; negative Edema Back Back Exam: Normal Inspection and Full ROM Neurologic Neurological Exam: Alert, Oriented X3 and CN II-XII Intact Psychiatric Psychiatric Exam: Normal Affect and Normal Mood Skin Skin Exam: Normal Color ROR Labs Reviewed Result Diagrams: 12/12/19 05:27 12/12/19 05:27 Laboratory: 12/07/19 11:50 Blood Blood Culture - Final 12/07/19 09:23 Blood Blood Culture - Final WBC 19.4 X10^3/uL (3.6-10.0) H 12/07/19 09:23 RBC 4.48 X10^6/uL (4.7-6.0) L 12/07/19 09:23 Hgb 13.9 g/dL (13.5-18.0) 12/07/19 09:23 Hct 41.2 % (42.0-54.0) L 12/07/19 09:23 MCV 91.8 fL (80.0-100.0) 12/07/19 09:23 MCH 30.9 pg (27.0-34.0) 12/07/19 09:23 MCHC 33.7 g/dL (33.0-35.0) 12/07/19 09:23 RDW 14.2 % (11.6-16.5) 12/07/19 09:23 Plt Count 217 X10^3/uL (150.0-450.0) 12/07/19 09:23 Plt Count Comment Adequate (ADEQUATE) 12/07/19 09:23 MPV 8.1 fL (7.4-11.0) 12/07/19 09:23 Neut % (Auto) 91.8 % (42.0-75.0) H 12/07/19 09:23 Lymph % (Auto) 4.5 % (21.0-51.0) L 12/07/19 09:23 [place] % (Auto) 3.3 % (0.0-13.0) 12/07/19 09:23 Eos % (Auto) 0.1 % (0.9-2.9) L 12/07/19 09:23 Baso % (Auto) 0.3 % (0.2-1.0) 12/07/19 09:23 Neut # (Auto) 17.8 x10^3/uL (2.2-4.8) H 12/07/19 09:23 Lymph # (Auto) 0.9 X10^3/uL (1.3-2.9) L 12/07/19 09:23 [place]et # (Auto) 0.6 x10^3/uL (0.3-0.8) 12/07/19 09:23 Eos # (Auto) 0.0 x10^3/uL (0.0-0.2) 12/07/19 09:23 Baso # (Auto) 0.1 X10^3/uL (0.0-0.1) 12/07/19 09:23 Absolute Nucleated RBC 0.0 /100WBC 12/07/19 09:23 Total Counted 100 12/07/19 09:23 Neutrophils % (Manual) 90 % (39-76) H 12/07/19 09:23 Lymphocytes % (Manual) 7 % (13-43) L 12/07/19 09:23 Monocytes % (Manual) 3 % (4-9) L 12/07/19 09:23 Plt Morphology Comment Normal (NORMAL) 12/07/19 09:23 RBC Morphology Normal (NORMAL) 12/07/19 09:23 Sample Site Right brachial 12/07/19 11:58 ABG pH 7.490 (7.35-7.45) H 12/07/19 11:58 ABG pCO2 34.0 mmHg (35.0-45.0) L 12/07/19 11:58 ABG pO2 73.0 mmHg (80.0-100.0) L 12/07/19 11:58 ABG HCO3 25.9 mmol/L (22-26) 12/07/19 11:58 ABG O2 Saturation 96.0 % (90-100) 12/07/19 11:58 ABG Base Excess 2.8 mmol/L (-2.0-2.0) H 12/07/19 11:58 Bao Test Na 12/07/19 11:58 A-a Gradient 84.0 mmHg 12/07/19 11:58 FiO2 28.0 12/07/19 11:58 Blood Gas Comments Mary Jane well aw 12/07/19 11:58 Sodium 130 mmol/L (136-145) L 12/07/19 09:23 Corrected Sodium 135 mmol/L (136-145) L 12/07/19 09:23 Potassium 4.5 mmol/L (3.5-5.1) 12/07/19 09:23 Chloride 95 mmol/L (98-107) L 12/07/19 09:23 Carbon Dioxide 24.6 mmol/L (21-32) 12/07/19 09:23 BUN 24 mg/dL (7-18) H 12/07/19 09:23 Creatinine 1.27 mg/dL (0.70-1.30) 12/07/19 09:23 Est GFR (MDRD) Af Amer > 60 (>60) 12/07/19 09:23 Est GFR (MDRD) Non-Af 59 (>60) 12/07/19 09:23 Glucose 302 mg/dL (65-99) H 12/07/19 09:23 Calcium 9.3 mg/dL (8.5-10.1) 12/07/19 09:23 Corrected Calcium 10.2 mg/dL (8.5-10.1) H 12/07/19 09:23 Ferritin 590 ng/mL (26-388) H 12/07/19 09:23 Total Bilirubin 1.10 mg/dL (0.2-1.0) H 12/07/19 09:23 AST 28 Units/L (15-37) 12/07/19 09:23 ALT 48 Units/L (12-78) 12/07/19 09:23 Alkaline Phosphatase 94 Units/L (46-116) 12/07/19 09:23 Creatine Kinase 48 Units/L (39-308) 12/07/19 09:23 CK-MB (CK-2) < 1.0 ng/mL (0-4.0) 12/07/19 09:23 CK/CKMB % Calc 2.1 % (<4) 12/07/19 09:23 Troponin I 0.04 ng/mL (0-1.5) 12/07/19 09:23 C-Reactive Protein 81.60 mg/L (0-3.0) H 12/07/19 09:23 Total Protein 7.3 g/dL (6.4-8.2) 12/07/19 09:23 Albumin 2.9 g/dL (3.4-5.0) L 12/07/19 09:23 Globulin 4.4 g/dL (2.5-4.5) 12/07/19 09:23 Albumin/Globulin Ratio 0.7 Ratio (1.1-2.1) L 12/07/19 09:23 Blood Type O NEGATIVE 12/07/19 11:50 Antibody Screen Cancelled 12/07/19 11:50 Opioid Opioid Risk Tool Age (Scar box if 16-45): No History of Preadolescent Sexual Abuse: No Total: 0 Total Score Risk Category: Low Risk Copyright: Emil DÍAZ predicting aberrant behaviors Instructions Instructions: Viral Respiratory Infection, Zifo-Qc-Wvmh Hand Washing, Lxzc-ud-Rnlv Fever, Adult Antibiotic Medicine, Adult, Nbvi-vc-Qvig Type 2 Diabetes Mellitus, Self Care, Adult, Rtti-qy-Acuz Diarrhea, Adult Personal Hygiene Droplet Precautions, Doej-bx-Jukc Contact Precautions, Rdht-py-Vvjz Hypertension, Bupr-bn-Gujh You've Been Prescribed an Antibiotic in the Hospital for an Infection - [facility] [place] (07/2017) Forms: Excuse From Work or School Precautions for COVID19 Patient Portal Social Distancing
--- NOTE | 2020-01-17 08:57 | DR.DIZZY ---
HPI Time seen Time Seen by Provider: 12/07/19 09:08 PCP Primary Care Physician: Steven Complaint Chief Complaint:: PT C/O WEAKNESS, NOT EATING, HIGH SUGAR, AND UNABLE TO GET HIS STRENGTH BACK. PT STATES HE WAS COVID POSITIVE AND WAS ADMITTED IN THE HOSPITAL AND DISCHARGED THIS PAST TUESDAY. PT'S STATES HE WAS ADMINISTERED THE PLASMA ALSO A TREATMENT WHILE HE WAS ADMITTED. COVID-19 Coronavirus risk:travel/contact w/high risk person: Yes Has patient experienced Coronavirus symptoms: Yes Coronavirus symptoms experienced: Shortness of Breath Source History Provided: Family Member Mode of Arrival Mode of Arrival: Wheelchair Timing Onset of Chief Complaint: 12/07/19 Context Stroke Symptoms: None PMH PMH Past Medical History: Yes Past Medical History: Diabetes, Dyslipidemia and Hypertension Past Surgical History: Yes Surgical History: Angioplasty/Stents and Ortho Surgery Family History History of Family Medical Conditions: Yes Family Medical History: Diabetes Mellitus and Hypertension Social History Does patient currently use any type of tobacco product: No Have you used tobacco products in the last 12 months: No Type of Tobacco Use: None Does any household member use tobacco: No Alcohol Use: None Do you use any recreational Drugs:: No Lives With: Alone Lives Where: Home Travel Risk Coronavirus risk:travel/contact w/high risk person: Yes Has patient experienced Coronavirus symptoms: Yes Coronavirus symptoms experienced: Shortness of Breath Infectious screening In the last 2 months have you had wt loss of >10#?: NO Have you had fever, night sweats or hemotysis?: No Have you traveled outside the country in the last 6 months?: No Isolation: Standard PE Vital Signs Vitals: Temperature 98.7 F Pulse Rate [Right Radial] 99 Pulse Rate 98 Respiratory Rate 22 Blood Pressure [Right Arm] 130/67 Blood Pressure 140/72 O2 Sat by Pulse Oximetry 94 General Limitations: No Limitations General Appearance: Alert and In No Apparent Distress Head Head Exam: Normal Inspection, Atraumatic and Normocephalic Eyes Eye exam: Normal Appearance and EOMI Pupils: Regular, Round: Bilateral ENT ENT Exam: Normal Exam and Normal Oropharynx Neck Neck Exam: Normal Inspection, Full ROM and Trachea Midline Chest Chest Inspection: Normal Inspection Respiratory Respiratory Exam: Normal Lung Sounds Bilat; negative Respiratory Distress Cardiovascular Cardiovascular Exam: Regular Rate Abdominal Exam Abdominal Exam: Normal Inspection, Normal Bowel Sounds and Soft; negative Distention, Tenderness and Guarding Rectal Rectal Exam: Deferred Extremeties Extremities Exam: Normal Inspection and Full ROM Back Back Exam: Normal Inspection Neurologic Neurological Exam: Alert, Oriented X3 and CN II-XII Intact Psychiatric Psychiatric Exam: Depressed Skin Skin Exam: Normal Color ROR Labs Reviewed Result Diagrams: 12/12/19 05:27 12/12/19 05:27 Laboratory: 12/07/19 11:50 Blood Blood Culture - Final 12/07/19 09:23 Blood Blood Culture - Final WBC 19.4 X10^3/uL (3.6-10.0) H 12/07/19 09:23 RBC 4.48 X10^6/uL (4.7-6.0) L 12/07/19 09:23 Hgb 13.9 g/dL (13.5-18.0) 12/07/19 09:23 Hct 41.2 % (42.0-54.0) L 12/07/19 09:23 MCV 91.8 fL (80.0-100.0) 12/07/19 09:23 MCH 30.9 pg (27.0-34.0) 12/07/19 09:23 MCHC 33.7 g/dL (33.0-35.0) 12/07/19 09:23 RDW 14.2 % (11.6-16.5) 12/07/19 09:23 Plt Count 217 X10^3/uL (150.0-450.0) 12/07/19 09:23 Plt Count Comment Adequate (ADEQUATE) 12/07/19 09:23 MPV 8.1 fL (7.4-11.0) 12/07/19 09:23 Neut % (Auto) 91.8 % (42.0-75.0) H 12/07/19 09:23 Lymph % (Auto) 4.5 % (21.0-51.0) L 12/07/19 09:23 [place] % (Auto) 3.3 % (0.0-13.0) 12/07/19 09:23 Eos % (Auto) 0.1 % (0.9-2.9) L 12/07/19 09:23 Baso % (Auto) 0.3 % (0.2-1.0) 12/07/19 09:23 Neut # (Auto) 17.8 x10^3/uL (2.2-4.8) H 12/07/19 09:23 Lymph # (Auto) 0.9 X10^3/uL (1.3-2.9) L 12/07/19 09:23 [place] # (Auto) 0.6 x10^3/uL (0.3-0.8) 12/07/19 09:23 Eos # (Auto) 0.0 x10^3/uL (0.0-0.2) 12/07/19 09:23 Baso # (Auto) 0.1 X10^3/uL (0.0-0.1) 12/07/19 09:23 Absolute Nucleated RBC 0.0 /100WBC 12/07/19 09:23 Total Counted 100 12/07/19 09:23 Neutrophils % (Manual) 90 % (39-76) H 12/07/19 09:23 Lymphocytes % (Manual) 7 % (13-43) L 12/07/19 09:23 Monocytes % (Manual) 3 % (4-9) L 12/07/19 09:23 Plt Morphology Comment Normal (NORMAL) 12/07/19 09:23 RBC Morphology Normal (NORMAL) 12/07/19 09:23 Sample Site Right brachial 12/07/19 11:58 ABG pH 7.490 (7.35-7.45) H 12/07/19 11:58 ABG pCO2 34.0 mmHg (35.0-45.0) L 12/07/19 11:58 ABG pO2 73.0 mmHg (80.0-100.0) L 12/07/19 11:58 ABG HCO3 25.9 mmol/L (22-26) 12/07/19 11:58 ABG O2 Saturation 96.0 % (90-100) 12/07/19 11:58 ABG Base Excess 2.8 mmol/L (-2.0-2.0) H 12/07/19 11:58 Bao Test Na 12/07/19 11:58 A-a Gradient 84.0 mmHg 12/07/19 11:58 FiO2 28.0 12/07/19 11:58 Blood Gas Comments Mary Jane well aw 12/07/19 11:58 Sodium 130 mmol/L (136-145) L 12/07/19 09:23 Corrected Sodium 135 mmol/L (136-145) L 12/07/19 09:23 Potassium 4.5 mmol/L (3.5-5.1) 12/07/19 09:23 Chloride 95 mmol/L (98-107) L 12/07/19 09:23 Carbon Dioxide 24.6 mmol/L (21-32) 12/07/19 09:23 BUN 24 mg/dL (7-18) H 12/07/19 09:23 Creatinine 1.27 mg/dL (0.70-1.30) 12/07/19 09:23 Est GFR (MDRD) Af Amer > 60 (>60) 12/07/19 09:23 Est GFR (MDRD) Non-Af 59 (>60) 12/07/19 09:23 Glucose 302 mg/dL (65-99) H 12/07/19 09:23 Calcium 9.3 mg/dL (8.5-10.1) 12/07/19 09:23 Corrected Calcium 10.2 mg/dL (8.5-10.1) H 12/07/19 09:23 Ferritin 590 ng/mL (26-388) H 12/07/19 09:23 Total Bilirubin 1.10 mg/dL (0.2-1.0) H 12/07/19 09:23 AST 28 Units/L (15-37) 12/07/19 09:23 ALT 48 Units/L (12-78) 12/07/19 09:23 Alkaline Phosphatase 94 Units/L (46-116) 12/07/19 09:23 Creatine Kinase 48 Units/L (39-308) 12/07/19 09:23 CK-MB (CK-2) < 1.0 ng/mL (0-4.0) 12/07/19 09:23 CK/CKMB % Calc 2.1 % (<4) 12/07/19 09:23 Troponin I 0.04 ng/mL (0-1.5) 12/07/19 09:23 C-Reactive Protein 81.60 mg/L (0-3.0) H 12/07/19 09:23 Total Protein 7.3 g/dL (6.4-8.2) 12/07/19 09:23 Albumin 2.9 g/dL (3.4-5.0) L 12/07/19 09:23 Globulin 4.4 g/dL (2.5-4.5) 12/07/19 09:23 Albumin/Globulin Ratio 0.7 Ratio (1.1-2.1) L 12/07/19 09:23 Blood Type O NEGATIVE 12/07/19 11:50 Antibody Screen Cancelled 12/07/19 11:50 Opioid Opioid Risk Tool Age (Scar box if 16-45): No History of Preadolescent Sexual Abuse: No Total: 0 Total Score Risk Category: Low Risk Copyright: [facility] predicting aberrant behaviors Instructions Instructions: Viral Respiratory Infection, Vwzq-Ak-Wzfg Hand Washing, Rioz-ws-Etio Fever, Adult Antibiotic Medicine, Adult, Vzmo-dq-Losm Type 2 Diabetes Mellitus, Self Care, Adult, Hogy-og-Cxsr Diarrhea, Adult Personal Hygiene Droplet Precautions, Udjv-yk-Bbmo Contact Precautions, Qqct-to-Ahhl Hypertension, Jara-dm-Rppk You've Been Prescribed an Antibiotic in the Hospital for an Infection - [facility] (07/2017) Forms: Excuse From Work or School Precautions for COVID19 Patient Portal Social Distancing
== END 2019-12-12 12:55 | disposition home health service (06) | DRG 177 ==
LOC: ER 08:27 → ICU 12:36 → MED/SURG 15:08
PROVIDERS: ADMIT Internal Medicine; ATTEND Internal Medicine
DX: E11.65 Type 2 diabetes mellitus with hyperglycemia; R53.1 Weakness; Z79.4 Long term (current) use of insulin; R09.02 Hypoxemia; R06.02 Shortness of breath; I10 Essential (primary) hypertension; U07.1 COVID-19; E78.2 Mixed hyperlipidemia; J12.89 Other viral pneumonia